=== PATIENT | female | born 1970 | race Caucasian/White ===

== ENCOUNTER 2019-11-27 10:32 | Inpatient (IN) ==
[2019-11-27] MEDS ORDERED: VANCOMYCIN 1,000 MG in 0.9 % SODIUM CHLORIDE 250 ML IV ONE (11:01)
[2019-11-27] MEDS ORDERED: traMADol 50 MG TABLET PO ONE (11:05)
[2019-11-27] MEDS ORDERED: INSULIN REGULAR, HUMAN 1 UNIT/0.01 ML UNIT SQ ONE (11:29)
--- NOTE | 2019-11-27 11:45 | Emergency Department Note ---
ED Note Addendum Note Addendum: I saw this patient with Sol BOYD. I agree with her assessment and evaluation-there is the possibility of osteomyelitis on my exam, in addition to cellulitis. I added a couple more labs on him as well as ordered imaging with x-ray. Patient's blood sugar was 358 so insulin was ordered as well. I reviewed studies and discussed the case with Sol Aragon. Patient will require admission. Sol to discuss with hospitalist
[2019-11-27 12:08] LABS: Basophils # (Auto) 0.05 K/mcL (0.00-0.30); Basophils % (Auto) 0.3 % (0.0-2.0); Eosinophils # (Auto) 0.32 K/mcL (0.00-0.70); Eosinophils % (Auto) 1.8 % (0.0-7.0); Granulocytes % (Auto) 79.9 % (38.0-78.0); Hematocrit 35.2 % (34.1-44.9); Lymphocytes # (Auto) 1.95 K/mcL (1.50-4.80); Lymphocytes % (Auto) 11.1 % (15.5-49.0); Mean Cell Volume 87.6 fL (80.0-100.0); Mean Corpuscular HGB Conc 34.1 g/dL (31.0-36.0); Mean Platelet Volume 11.8 fL (7.4-10.4); Monocytes # (Auto) 1.22 K/mcL (0.10-0.90); Monocytes % (Auto) 6.9 % (1.0-12.0); Platelet Count 219 K/mcL (140-440); RBC 4.02 M/mcL (3.59-5.38); Red Cell Distribution Width 14.2 % (11.5-14.5); WBC 17.6 K/mcL (4.50-11.00)
[2019-11-27 14:13] LABS: ALT/SGPT 6 U/l (0-40); AST/SGOT 11 U/l (0-37); Albumin 3.1 gm/dL (3.2-5.2); Albumin/Globulin Ratio 0.9 (1.0-2.3); Alkaline Phosphatase 89 U/L (39-117); Bilirubin,Total 0.5 mg/dL (0.0-1.0); Blood Urea Nitrogen 13 mg/dl (6-20); C-Reactive Protein 13.4 mg/dl (0.0-0.8); Calcium 8.9 mg/dl (8.6-10.4); Carbon Dioxide 20 mmol/L (22-30); Chloride 97 mmol/L (96-108); Globulin 3.4 gm/dL (2.2-3.7); Glomerular Filtration Rate 109; Glucose 331 mg/dL (70-105)
--- NOTE | 2019-11-27 14:15 | Emergency Department Note ---
Skin/Abscess/FB HPI - General Chief complaint: Skin/Abscess/Foreign Body Stated complaint: diabetic foot ulcer, right foot Time Seen by Provider: 11/27/19 10:40 Source: patient Mode of arrival: ambulatory Limitations: no limitations - History of Present Illness HPI Narrative: 49-year-old female presents with right foot redness, warmth, and she believes it is infected. States she saw her wound care doctor on Thursday and was concerned that it was red and warm and infected but they did not put her on antibiotics. States now it is severe. Denies fever or chills. No nausea, vomiting, or diarrhea. Her foot is painful and the swelling and redness is much worse over the last 24 hours. States when she gets this, which she has in the past it goes bad very quickly. No home treatments. - Related Data Previous Rx's Medication Instructions Recorded multivitamin 1 tab PO QDAY #90 tab 04/20/15 Naproxen [EC-Naprosyn] 375 mg PO 1HRACBID #20 tablet. 07/27/15 gabapentin 400 mg capsule 400 mg PO TID #90 cap 12/18/15 gabapentin 600 mg tablet,extended 600 mg PO HS #30 tab 12/18/15 release 24 hr insulin glargine 100 unit/mL (3 135 unit SUB-Q QHS #15 ml 12/18/15 mL) subcutaneous pen insulin glargine 100 unit/mL 175 unit SUB-Q .am #10 ml 12/18/15 subcutaneous solution lamotrigine 25 mg tablet 50 mg PO QDAY #60 tab 12/18/15 lisinopril 20 mg tablet 20 mg PO DAILY #30 tab 12/18/15 quetiapine 25 mg tablet 75 mg PO QHS #90 tab 12/18/15 simvastatin 20 mg tablet 20 mg PO QPM #30 tab 12/18/15 triamterene 37.5 1 tab-cap PO DAILY #30 tab 12/18/15 mg-hydrochlorothiazide 25 mg tablet insulin aspart U-100 100 unit/mL See Dose Instructions SUB-Q TID 02/21/16 subcutaneous solution #10 ml Clindamycin HCl [Cleocin] 300 mg PO TID #30 cap 05/28/19 Allergies Allergy/AdvReac Type Severity Reaction Status Date / Time cephalexin Allergy Rash Verified 11/27/19 10:38 Penicillins Allergy Rash Verified 11/27/19 10:38 Review of Systems All systems ED: reviewed and negative except as stated. Past Medical History - Past Medical History [facility] Narrative: Medical History (Last Updated 10/22/19 @ 17:01 by Jesus Mclaughlin DO) Diabetes mellitus, type II (Chronic) Sleep apnea (Chronic) Obesity (Chronic) Dental caries (Chronic) Neuropathy (Chronic) Hypertension (Chronic) Hyperlipidemia (Chronic) Kidney stones (Chronic) Insomnia (Chronic) Hypertension, essential (Chronic) Bipolar disorder (Chronic) Depressive disorder (Chronic) Carpal tunnel syndrome (Chronic) Arthritis (Chronic) Anxiety disorder (Chronic) Diabetic foot ulcer (Resolved) Cellulitis and abscess of foot (Resolved) Leukocytosis (leucocytosis) (Chronic) SIRS (systemic inflammatory response syndrome) (Resolved) Dental abscess (Resolved) Left breast mass (Resolved) Past Surgical History (Last Updated 10/22/19 @ 17:01 by Jesus Mclaughlin DO) History of section (Chronic) History of cholecystectomy (Chronic) Medical history: Reports: DM, hypertension, other (diabetic peripheral neuropathy, Charcot foot bilaterally.) Psychiatric history: Reports: other Surgical history ED: Reports: cholecystectomy, , hysterectomy, other - Social History smoking status: Current every day smoker Alcohol use: Reports: Unknown Drug use: Reports: none Physical Exam Limitations: no limitations General appearance: alert Head: atraumatic, normocephalic, normal inspection Eye: Present: normal appearance. Absent: conjunctival injection ENT: Present: mucous membranes moist Chest: Present: symmetric chest wall rise Respiratory: Present: normal lung sounds bilaterally. Absent: respiratory distress, rales/crackles, accessory muscle use Cardiovascular: Present: regular rate, normal heart sounds Extremities: Absent: normal inspection (Right foot with diffuse edema, redness, and warmth and tenderness. ) Neurological: Present: alert, oriented X3 Psychiatric: Present: anxious Skin: Present: warm, dry, erythema (To right foot, please see extremity assessment) Course Course Narrative: At 1510 Dr. Rodriguez, hospitalist accepts pt and Dr. Tierney agrees to consult Vital Signs Temperature 98.2 F 11/27/19 10:33 Pulse Rate 87 11/27/19 10:33 Respiratory Rate 16 11/27/19 10:33 Blood Pressure 131/77 11/27/19 10:33 Pulse Oximetry (%) 100 11/27/19 10:33 Temperature 98.2 F 11/27/19 10:33 Pulse Rate 78 11/27/19 13:00 Respiratory Rate 16 11/27/19 10:33 Blood Pressure 101/51 11/27/19 13:00 Pulse Oximetry (%) 97 11/27/19 13:00 Skin/Abscess/Foreign Body - Lab Data Lab results reviewed: Yes I reviewed the patient's lab results. Result diagrams: 11/27/19 11:28 11/27/19 13:14 Lab Results 11/27/19 11/27/19 11/27/19 Range/Units 11:28 11:28 11:28 WBC 17.6 H (4.50-11.00) K/mcL RBC 4.02 (3.59-5.38) M/mcL Hgb 12.0 (11.2-15.7) g/dL Hct 35.2 (34.1-44.9) % MCV 87.6 (80.0-100.0) fL MCH 29.9 (26.0-34.0) pg MCHC 34.1 (31.0-36.0) g/dL RDW 14.2 (11.5-14.5) % Plt Count 219 (140-440) K/mcL MPV 11.8 H (7.4-10.4) fL Gran % 79.9 H (38.0-78.0) % Lymph % (Auto) 11.1 L (15.5-49.0) % [place] % (Auto) 6.9 (1.0-12.0) % Eos % (Auto) 1.8 (0.0-7.0) % Baso % (Auto) 0.3 (0.0-2.0) % Gran # 14.05 H (1.80-8.00) K/mcL Lymph # (Auto) 1.95 (1.50-4.80) K/mcL [place] # (Auto) 1.22 H (0.10-0.90) K/mcL Eos # (Auto) 0.32 (0.00-0.70) K/mcL Baso # (Auto) 0.05 (0.00-0.30) K/mcL VBG Lactic Acid 1.0 (0.5-2.0) mmol/L Sodium TNP Potassium TNP Chloride TNP Carbon Dioxide TNP Anion Gap TNP BUN TNP Creatinine TNP GFR Calculation TNP Glucose TNP Calcium TNP Total Bilirubin TNP AST TNP ALT TNP Alkaline Phosphatase TNP C-Reactive Protein TNP Total Protein TNP Albumin TNP Globulin TNP Albumin/Globulin Ratio TNP Procalcitonin 11/27/19 11/27/19 11/27/19 Range/Units 11:28 13:14 13:14 WBC (4.50-11.00) K/mcL RBC (3.59-5.38) M/mcL Hgb (11.2-15.7) g/dL Hct (34.1-44.9) % MCV (80.0-100.0) fL MCH (26.0-34.0) pg MCHC (31.0-36.0) g/dL RDW (11.5-14.5) % Plt Count (140-440) K/mcL MPV (7.4-10.4) fL Gran % (38.0-78.0) % Lymph % (Auto) (15.5-49.0) % [place] % (Auto) (1.0-12.0) % Eos % (Auto) (0.0-7.0) % Baso % (Auto) (0.0-2.0) % Gran # (1.80-8.00) K/mcL Lymph # (Auto) (1.50-4.80) K/mcL [place] # (Auto) (0.10-0.90) K/mcL Eos # (Auto) (0.00-0.70) K/mcL Baso # (Auto) (0.00-0.30) K/mcL VBG Lactic Acid (0.5-2.0) mmol/L Sodium 130 L Potassium 4.7 Chloride 97 Carbon Dioxide 20 L Anion Gap 13.0 BUN 13 Creatinine 0.6 GFR Calculation 109 Glucose 331 H Calcium 8.9 Total Bilirubin 0.5 AST 11 ALT 6 Alkaline Phosphatase 89 C-Reactive Protein 13.4 H Total Protein 6.5 Albumin 3.1 L Globulin 3.4 Albumin/Globulin Ratio 0.9 L Procalcitonin TNP 0.04 - Radiology Data Radiology results reviewed: Yes I reviewed the patient's radiology results. Disposition Pt seen by [employer] only: No Clinical Impression: Cellulitis of right foot, Hyperglycemia due to diabetes mellitus Disposition: Xfer As Inpt ([facility]) Condition: Fair
--- NOTE | 2019-11-27 15:01 | Internal Med History&Physical ---
Medical - H&P: [facility] Patient information: Note initiated : 11/27/19 at 2:58 pm Service Date, if different from initiated Date: [] Patient: Dolores Sow a 49 y/o F admitted on for diabetic foot ulcer, right foot. Chief Complaint: [] History of present illness: Ms. Sow is a 49 year old F Presents the ED with diabetic foot ulcer that is becoming increasingly red , warm, and tender. She is being followed by wound care outpatient. Patient states that when she went to the wound care on Thursday for routine check she had a red swollen tender right foot. Since that time the redness has increased to include her entire foot with swelling around her right foot. Vital signs are stable this time. She was found to have a leukocytosis of 17. Lactate okay. MRI of the foot done in ED and pending results Dr. tierney contacted from the ED. Patient denies fevers, appears anxious. Review of Systems: Pertinent positives as above. Denies headache/fever/chills/nausea/vomiting/chest or abdominal yuki n/cough/dyspnea/diarrhea. Remaining 10 point review of system reviewed negative. Medical - H&P: [facility] Medical history: Medical History (Last Updated 10/22/19 @ 17:01 by Jesus Mclaughlin DO) Diabetes mellitus, type II (Chronic) Sleep apnea (Chronic) Obesity (Chronic) Dental caries (Chronic) Neuropathy (Chronic) Hypertension (Chronic) Hyperlipidemia (Chronic) Kidney stones (Chronic) Insomnia (Chronic) Hypertension, essential (Chronic) Bipolar disorder (Chronic) Depressive disorder (Chronic) Carpal tunnel syndrome (Chronic) Arthritis (Chronic) Anxiety disorder (Chronic) Diabetic foot ulcer (Resolved) Cellulitis and abscess of foot (Resolved) Leukocytosis (leucocytosis) (Chronic) SIRS (systemic inflammatory response syndrome) (Resolved) Dental abscess (Resolved) Left breast mass (Resolved) Past Surgical History (Last Updated 10/22/19 @ 17:01 by Jesus Mclaughlin DO) History of section (Chronic) History of cholecystectomy (Chronic) Family History Mother Cerebrovascular accident Diabetes mellitus Family history of arthritis Essential hypertension Acute myocardial infarction Disorder of thyroid Social History 1/2 ppd Denies alcohol use Uses a one leg scooter for right leg around Lives at home with family Medical - H&P: Meds Home Medications Medication Instructions Recorded Confirmed Type multivitamin 1 tab PO QDAY #90 tab 08/28/15 05/13/16 Rx Naproxen [EC-Naprosyn] 375 mg PO 1HRACBID #20 tablet.dr 07/27/15 01/04/16 Rx gabapentin 400 mg capsule 400 mg PO TID #90 cap 12/18/15 01/04/16 Rx gabapentin 600 mg tablet,extended 600 mg PO HS #30 tab 12/18/15 01/04/16 Rx release 24 hr insulin glargine 100 unit/mL (3 135 unit SUB-Q QHS #15 ml 12/18/15 01/04/16 Rx mL) subcutaneous pen insulin glargine 100 unit/mL 175 unit SUB-Q .am #10 ml 12/18/15 01/04/16 Rx subcutaneous solution lamotrigine 25 mg tablet 50 mg PO QDAY #60 tab 12/18/15 01/04/16 Rx lisinopril 20 mg tablet 20 mg PO DAILY #30 tab 12/18/15 01/04/16 Rx quetiapine 25 mg tablet 75 mg PO QHS #90 tab 12/18/15 01/04/16 Rx simvastatin 20 mg tablet 20 mg PO QPM #30 tab 12/18/15 01/04/16 Rx triamterene 37.5 1 tab-cap PO DAILY #30 tab 12/18/15 01/04/16 Rx mg-hydrochlorothiazide 25 mg tablet insulin aspart U-100 100 unit/mL See Dose Instructions SUB-Q TID 02/21/16 Rx subcutaneous solution #10 ml Clindamycin HCl [Cleocin] 300 mg PO TID #30 cap 05/28/19 Rx Allergies Allergy/AdvReac Type Severity Reaction Status Date / Time cephalexin Allergy Rash Verified 11/27/19 10:38 Penicillins Allergy Rash Verified 11/27/19 10:38 Medical - H&P: Exam - Constitutional Vitals: Temp Pulse Resp BP Pulse Ox 98.2 F 78 16 101/51 97 11/27/19 10:33 11/27/19 13:00 11/27/19 10:33 11/27/19 13:00 11/27/19 13:00 Exam: General: Alert, Awake, No acute Distress, obese Eyes/N/T: EOMI, PERRL, Head/Neck: neck supple, normocephalic atraumatic CV: RRR, No murmurs, normal s1/s2 Pulm: Clear b/l, no wheezing/rhonchi/rales Abd: soft, nontender, +BS x4 Ext: no clubbing/cyanosis/edema to LLE. RLE/foot erythematous/edematous/tender to palpation Neuro: Alert, no focal deficits, moves all extremities, CN 2-12 grossly intact, symmetrical strength b/l upper/lower, Skin: warm/dry Medical - H&P: Reslt - Labs CBC & Chem 7: 11/27/19 11:28 11/27/19 13:14 Labs: Short CBC 11/27/19 Range/Units 11:28 WBC 17.6 H (4.50-11.00) K/mcL Hgb 12.0 (11.2-15.7) g/dL Hct 35.2 (34.1-44.9) % Plt Count 219 (140-440) K/mcL BMP 11/27/19 11/27/19 11:28 13:14 Sodium TNP 130 L Potassium TNP 4.7 Chloride TNP 97 Carbon Dioxide TNP 20 L BUN TNP 13 Creatinine TNP 0.6 Glucose TNP 331 H Calcium TNP 8.9 Liver Function 11/27/19 11/27/19 Range/Units 11:28 13:14 Total Bilirubin TNP 0.5 AST TNP 11 ALT TNP 6 Alkaline Phosphatase TNP 89 Albumin TNP 3.1 L Medical - H&P: A/P - Narrative A/P Narrative: A: *Diabetic Right Foot ulcer/infection: -MRI showing *DM w/neuropathy: Hyperglycemic on admit, A1c -Hyperglycemic on admit 360 *Hyponatremia: may be on HCTZ *Obesity: *CHRIS: *HTN/HLD: *Anxiety/depression/bipolar: *Tobacco abuse: *Obesity: *GERD: P: -IV Vanco/rocephin, pending BC/WC -MRI pending -Dr. Tierney consulted -check ESR -check A1c -basal and SSI -clarify/update meds - -Smoking cessation counseling -ppx: heparin full code
--- NOTE | 2019-11-27 15:35 | Magnetic Resonance Report ---
CLINICAL INFORMATION: Midfoot swelling with diabetic foot ulcer evaluate for osteomyelitis COMPARISON: Plain films 11/27/2019 TECHNIQUE: Axial T1 and T2 proton density coronal propensity sagittal T1 and proton density images were obtained through the right foot FINDINGS: A 3 cm cutaneous ulcer is seen in the plantar fascia of the mid foot. Low signal within the base of this ulcer which could indicate surgical packing material or air. In the deep adjacent plantar fascia, a 4 cm fluid collection has disrupted the plantar tendon and extends through the plantar fascia to the cortex of the cuboid and calcaneus. It is suspicious for a deep fascial abscess. Large joint effusions throughout the hindfoot and midfoot involving the ankle mortise, talocalcaneal, calcaneocuboid, talocuneiform and all of the MTT joints. This should represent multicompartmental septic arthritis. An result of inflammation, there is subtotal erosion of the lateral cuneiform and the navicular. In fact, the navicular no longer longer articulates with the talus: there is complete talonavicular dislocation. Moderate erosive changes also seen in the cuboid, medial/middle cuneiform, anterior calcaneus and talar head. Inflammatory disruption of most midfoot and hindfoot ligaments appreciated with resultant plantar displacement and rotation of the talus and cuboid. Both transverse and longitudinal plantar arches are severely disrupted resulting in a rocker-bottom type appearance. IMPRESSION: 3 cm lateral ulceration in the mid foot. Deep to the ulceration, a 4 cm abscess has disrupted the plantar ligament and plantar fascia extending to the cortex of the calcaneus and cuboid. There is marked synovitis throughout the hindfoot and midfoot joints almost certainly representing septic arthritis. Subtotal inflammatory destruction of the lateral cuneiform and navicular with moderate erosive changes in talar head, middle/medial cuneiform, anterior calcaneus and cuboid appreciated. Complete dislocation of the talonavicular joint is due to inflammation. Inflammatory loss of osseous and ligamentous integrity results in complete collapse of the plantar arch with a rocker-bottom appearance. Interpreted and Authenticated by: Joce King 11/27/19
--- NOTE | 2019-11-27 15:43 | XRay Report ---
CLINICAL INFORMATION: osteomylitis COMPARISON: 10/26/2019 FINDINGS: A 2.8 cm air collection in the lateral plantar fascial overlying the fifth MTT joint represents the known ulceration. There is marked adjacent soft tissue swelling suspicious for focal abscess. This is new from the previous study. Total inflammatory destruction of the lateral cuneiform navicular, cuboid, talar head and anterior calcaneus has progressed. Suspect multi compartment septic arthritis and osteomyelitis. Loss of Osseous and ligamentous integrity results in complete collapse of the transverse and longitudinal plantar arch and a "rocker bottom "type deformity. This is unchanged IMPRESSION: 2.8 cm ulceration in the plantar cutaneous region of the fifth MTT cuboid region. There is marked adjacent soft tissue swelling suspicious for an abscess which appears to have developed since the comparison x-ray one month ago. Moderate erosive changes all tarsal bones talar head and anterior calcaneus has progressed. Suspect septic arthritis and associated osteomyelitis throughout the mid foot. Follow-up MRI could will be be performed Interpreted and Authenticated by: Joce King 11/27/19
[2019-11-27 15:48] LABS: Amphetamine Screen,Urine SUSPECT POSITIVE (NONDETECTED); Barbiturate Screen,Urine NONE DETECTED (NONDETECTED); Benzodiazepines Screen,Urine NONE DETECTED (NONDETECTED); Cannabinoid Screen,Urine SUSPECT POSITIVE (NONDETECTED); Cocaine Screen,Urine NONE DETECTED (NONDETECTED); Opiate Screen,Urine NONE DETECTED (NONDETECTED); Oxycodone, Urine Screen NONE DETECTED (NONDETECTED); Phencyclidine Screen,Urine NONE DETECTED (NONDETECTED)
[2019-11-27] MEDS ORDERED: ACETAMINOPHEN 325 MG TABLET PO PRN (16:14)
[2019-11-27] MEDS ORDERED: DEXTROSE 31 GM ORAL.SUSP PO PRN (16:14)
[2019-11-27] MEDS ORDERED: POTASSIUM CHLORIDE 20 MEQ TABLET PO PRN ×2 (16:14)
[2019-11-27] MEDS ORDERED: ONDANSETRON 4 MG/2 ML VIAL IV PRN (16:14)
[2019-11-27] MEDS ORDERED: SENNOSIDES 1 TABLET PO PRN (16:14)
[2019-11-27] MEDS ORDERED: IPRATROPIUM/ALBUTEROL 3 ML AMPUL.NEB NEB PRN (16:14)
[2019-11-27] MEDS ORDERED: POTASSIUM CHLORIDE 40 MEQ in DEXTROSE 5% IN WATER 500 ML IV PRN (16:14)
[2019-11-27] MEDS ORDERED: DEXTROSE 50% 50 ML VIAL IV PRN (16:14)
[2019-11-27] MEDS ORDERED: MAGNESIUM SULFATE 2 GM/50 ML BAG IV PRN (16:14)
[2019-11-27] MEDS ORDERED: VANCOMYCIN PER PHARMACY IV SCH (16:14)
[2019-11-27] MEDS ORDERED: POLYETHYLENE GLYCOL 3350 17 GM PACKET PO PRN (16:14)
[2019-11-27] MEDS ORDERED: INSULIN LISPRO 1 UNIT/0.01 ML UNIT SQ ONE (16:55)
[2019-11-27] MEDS: INSULIN LISPRO 1 UNIT/0.01 ML UNIT SQ SCH ×2 (16:56→20:24)
[2019-11-27 16:59] LABS: Hemoglobin A1C 10.4 % HGB (4.0-6.0)
[2019-11-27] MEDS: cefTRIAXone 2 GM in DEXTROSE 5% IN WATER 50 ML IV SCH (18:57)
[2019-11-27] MEDS: VANCOMYCIN 1,500 MG in 0.9 % SODIUM CHLORIDE 500 ML IV SCH (19:40)
[2019-11-27] MEDS ORDERED: diphenhydrAMINE 25 MG CAPSULE PO PRN (19:58)
[2019-11-27] MEDS ORDERED: MELATONIN 3 MG TABLET PO SCH (20:00)
[2019-11-27] MEDS: SIMVASTATIN 20 MG TABLET PO SCH (20:23)
[2019-11-27] MEDS: QUEtiapine 25 MG TABLET PO SCH (20:23)
[2019-11-27] MEDS: INSULIN GLARGINE, HUMAN 1 UNIT/0.01 ML SQ SCH (20:23)
[2019-11-27] MEDS: GABAPENTIN 300 MG CAPSULE PO SCH (20:23)
[2019-11-27] MEDS: FAMOTIDINE 20 MG TABLET PO SCH (20:23)
[2019-11-27] MEDS: HEPARIN 5,000 UNIT/ML VIAL SQ SCH (20:24)
[2019-11-27] MEDS: DOCUSATE SODIUM 100 MG CAPSULE PO SCH (20:25)
[2019-11-27] MEDS: 0.9 % SODIUM CHLORIDE 10 ML SYRINGE IV SCH (22:05)
[2019-11-28 06:02] LABS: Basophils # (Auto) 0.04 K/mcL (0.00-0.30); Basophils % (Auto) 0.4 % (0.0-2.0); Eosinophils # (Auto) 0.39 K/mcL (0.00-0.70); Eosinophils % (Auto) 4.1 % (0.0-7.0); Granulocytes % (Auto) 59.1 % (38.0-78.0); Hematocrit 33.7 % (34.1-44.9); Hemoglobin 10.9 g/dL (11.2-15.7); Lymphocytes # (Auto) 2.67 K/mcL (1.50-4.80); Lymphocytes % (Auto) 27.8 % (15.5-49.0); Mean Cell Volume 88.7 fL (80.0-100.0); Mean Corpuscular HGB Conc 32.3 g/dL (31.0-36.0); Mean Platelet Volume 10.8 fL (7.4-10.4); Monocytes # (Auto) 0.83 K/mcL (0.10-0.90); Monocytes % (Auto) 8.6 % (1.0-12.0); Platelet Count 210 K/mcL (140-440); WBC 9.6 K/mcL (4.50-11.00)
[2019-11-28 06:25] LABS: ALT/SGPT 6 U/l (0-40); AST/SGOT 6 U/l (0-37); Alkaline Phosphatase 76 U/L (39-117); Bilirubin,Direct < 0.2 mg/dL (0.0-0.3); Bilirubin,Total 0.4 mg/dL (0.0-1.0); Blood Urea Nitrogen 13 mg/dl (6-20); Calcium 8.7 mg/dl (8.6-10.4); Carbon Dioxide 23 mmol/L (22-30); Chloride 101 mmol/L (96-108); Globulin 3.1 gm/dL (2.2-3.7); Glomerular Filtration Rate 115; Glucose 117 mg/dL (70-105); Lactate Dehydrogenase 104 U/L (94-250); Phosphorous 3.9 mg/dL (2.7-4.5); Triglycerides 76 mg/dl (<150); Uric Acid 5.6 mg/dL (2.5-8.0)
--- NOTE | 2019-11-28 07:50 | Internal Med Progress Note ---
Medical - PN: Subj Patient information: Note initiated : 11/28/19 at 7:44 am Service Date, if different from initiated Date: [] Patient: Dolores Sow a 49 y/o F admitted on 11/27/19 for diabetic foot ulcer, right foot. Chief Complaint: [] Interval history: Ms. Sow is a 49 year old F Presents the ED with diabetic foot ulcer that is becoming increasingly red , warm, and tender. She is being followed by wound care outpatient. Patient states that when she went to the wound care on Thursday for routine check she had a red swollen tender right foot. Since that time the redness has increased to include her entire foot with swelling around her right foot. Vital signs are stable this time. She was found to have a leukocytosis of 17. Lactate okay. MRI of the foot done in ED and pending results Dr. tierney contacted from the ED. Patient denies fevers, appears anxious. /6 Patient slept well last night. Denies any fevers or chills or new complaints. Right foot coke still cleaner. Was quite defensive when I asked her about methamphetamine use, uses IV and inhaled. Explained to her the resources we have, including Dr. Haq. Review of Systems: denies headache/fever/chills/nausea/vomiting/chest or abdominal pain/cough/dyspnea/diarrhea. Otherwise see above. - Constitutional Vitals: Vital Signs Temp Pulse Resp BP Pulse Ox 98.0 F 82 20 90/55 95 11/28/19 04:00 11/28/19 04:00 11/28/19 04:00 11/28/19 04:00 11/28/19 04:00 Period Temp Pulse Resp BP Sys/Wilkins Pulse Ox Last 24 Hr 98.0 F-98.7 F 78-87 16-20 88-131/46-77 92-100 Intake and Output 11/27/19 11/28/19 11/28/19 21:59 05:59 13:59 Intake Total 240 250 Balance 240 250 Weight 120.746 kg Intake & Output: Intake & Output 11/27/19 11/28/19 11/28/19 21:59 05:59 13:59 Intake Total 240 250 Balance 240 250 Weight 120.746 kg Intake: Oral 240 250 Other: Meal yogurt & 1pk grahm crackers Percent of Meal Consumed 100% Feeding Ability Independent # Voids 1 Exam: General: Alert, Awake, No acute Distress, obese Eyes/N/T: EOMI, Head/Neck: neck supple, CV: RRR, No murmurs, Pulm: Clear b/l, no wheezing/rhonchi/rales Abd: soft, nontender, +BS x4 Ext: no clubbing/cyanosis/edema to LLE. RLE/foot erythematous/edematous/tender to palpation Neuro: Alert, no focal deficits, moves all extremities, Skin: warm/dry Medical - PN: Obj Da - Labs CBC & Chem 7: 11/28/19 05:25 11/28/19 05:25 Labs: Abnormal Lab Results 11/28/19 11/28/19 11/28/19 05:25 05:25 05:25 WBC Hgb 10.9 L Hct 33.7 L MPV 10.8 H Gran % Lymph % (Auto) Gran # [place]aines # (Auto) ESR Sodium Carbon Dioxide Creatinine 0.5 L Glucose 117 H Hemoglobin A1c C-Reactive Protein 10.0 H Albumin 3.0 L Albumin/Globulin Ratio Ur Amphetamines Screen U Marijuana (THC) Screen 11/27/19 11/27/19 11/27/19 13:14 11:28 11:28 WBC Hgb Hct MPV Gran % Lymph % (Auto) Gran # [place]aines # (Auto) ESR 57 H Sodium 130 L Carbon Dioxide 20 L Creatinine Glucose 331 H Hemoglobin A1c 10.4 H C-Reactive Protein 13.4 H Albumin 3.1 L Albumin/Globulin Ratio 0.9 L Ur Amphetamines Screen U Marijuana (THC) Screen 11/27/19 11/27/19 11:28 10:50 WBC 17.6 H Hgb Hct MPV 11.8 H Gran % 79.9 H Lymph % (Auto) 11.1 L Gran # 14.05 H Haines # (Auto) 1.22 H ESR Sodium Carbon Dioxide Creatinine Glucose Hemoglobin A1c C-Reactive Protein Albumin Albumin/Globulin Ratio Ur Amphetamines Screen Suspect positive A U Marijuana (THC) Screen Suspect positive A Meds: Medications Acetaminophen (Tylenol) 650 mg PO Q6HP PRN PRN Reason: PAIN/FEVER > 101 Hydrocodone Bitart/Acetaminophen ([place] 5/325mg) 1 tab PO Q4HP PRN PRN Reason: PAIN LEVEL 3-6 Albuterol/Ipratropium (Duoneb) 3 ml NEB Q4HP PRN PRN Reason: Shortness Of Breath Dextrose (Dextrose 50%) 0 ml IV UD PRN PRN Reason: Hypoglycemia Diagnostic Test (Pha) (Accu-Chek) 1 each FS ACHS [facility] Last Admin: 11/27/19 20:25 Dose: 1 each Documented by: Diphenhydramine HCl (Benadryl) 25 mg PO HSP PRN PRN Reason: Insomnia Docusate Sodium (Colace) 100 mg PO BID [facility] Last Admin: 11/27/19 20:25 Dose: Not Given Documented by: Famotidine (Pepcid) 20 mg PO HS [facility] Last Admin: 11/27/19 20:23 Dose: 20 mg Documented by: Gabapentin (Neurontin) 600 mg PO HS [facility] Last Admin: 11/27/19 20:23 Dose: 600 mg Documented by: Gabapentin (Neurontin) 400 mg PO TID@0900,1300,1700 [facility] Glucose (Insta-Glucose) 15 gm PO PRN PRN PRN Reason: Hypoglycemia Heparin Sodium (Porcine) (Heparin) 5,000 unit SQ Q12 [facility] Last Admin: 11/27/19 20:24 Dose: 5,000 unit Documented by: Potassium Chloride 40 meq/ (Dextrose) 520 mls @ 130 mls/hr IV UD PRN PRN Reason: Potassium < 3 Magnesium Sulfate (Magnesium Sulfate) 2 gm in 50 mls @ 50 mls/hr IV UD PRN PRN Reason: Magnesium </= 1.6 Ceftriaxone Sodium 2 gm/ (Dextrose) 50 mls @ 100 mls/hr IV DAILY [facility]; Protocol Last Admin: 11/27/19 18:57 Dose: 100 mls/hr Documented by: Vancomycin HCl 1,500 mg/ (Sodium Chloride) 500 mls @ 333.3 mls/hr IV Q12H [facility] Last Admin: 11/27/19 19:40 Dose: 250 mls/hr Documented by: Insulin Glargine (Lantus) 175 unit SQ .am [facility] Insulin Glargine (Lantus) 135 unit SQ HS [facility] Last Admin: 11/27/19 20:23 Dose: 135 units Documented by: Insulin Human Lispro (Humalog) 0 unit SQ [facility]; Protocol Last Admin: 11/27/19 20:24 Dose: 3 unit Documented by: Lamotrigine (Lamictal) 50 mg PO QDAY [facility] Lisinopril (Zestril) 20 mg PO DAILY [facility] Lorazepam (Ativan) 0.5 mg IV Q4-6HP PRN PRN Reason: ANXIETY/SEDATION Melatonin (Melatonin 3mg Tablet) 3 mg PO HSP [facility] Morphine Sulfate (Morphine) 0 mg IV Q3HP PRN PRN Reason: Pain Last Admin: 11/27/19 19:37 Dose: 3 mg Documented by: Ondansetron HCl (Zofran) 4 mg IV Q4HP PRN PRN Reason: Nausea And Vomiting Polyethylene Glycol (Miralax) 17 gm PO DAILYP PRN PRN Reason: Constipation Potassium Chloride (Kdur) 40 meq PO UD PRN PRN Reason: Potssium is 3-3.5 Potassium Chloride (Kdur) 40 meq PO UD PRN PRN Reason: Potassium < 3 Quetiapine Fumarate (Seroquel) 75 mg PO QHS [facility] Last Admin: 11/27/19 20:23 Dose: 75 mg Documented by: Senna (Senokot) 2 tab PO DAILYP PRN PRN Reason: Constipation Simvastatin (Zocor) 20 mg PO QPM [facility] Last Admin: 11/27/19 20:23 Dose: 20 mg Documented by: Sodium Chloride (Saline Flush) 10 ml IV Q8 [facility] Last Admin: 11/27/19 22:05 Dose: 10 ml Documented by: Vancomycin HCl (Vancomycin Per Pharmacy) 1 order IV UD [facility]; Protocol Medical - PN: A/P - Time Spent With Patient Total time spent is greater than 50% in coordination of care (as documented) at patient's floor/unit and/or counseling patient: - Narrative A/P Narrative: A: *Diabetic Right Foot ulcer/infection with Osteo: -MRI showing cellulitis/abscess/osteo *DM w/neuropathy, uncontrolled: Hyperglycemic on admit, A1c 10.4 -Hyperglycemic on admit 360 -pt does take lantus 175units in morning and 135 at night *Hyponatremia: may be on HCTZ; resolved *Obesity: *CHRIS: *HTN/HLD: *Anxiety/depression/bipolar: *Tobacco abuse: *Obesity: *GERD: *Substance abuse: with amphetamines IV/Inhaled - P: -IV Vanco/rocephin, pending BC/WC -Dr. Tierney consulted -basal (titrate up as needed) and SSI -hold hctz for hypontremia; reduced lisinopril for low BP, titrate back up as needed -Smoking/substance cessation counseling -Referral to see Dr. Haq outpt -ppx: heparin full code Medical - PN: Qual - VTE Deep Vein Thrombosis/Pulmonary Embolism Present on Admission: No
[2019-11-28] MEDS ORDERED: LISINOPRIL 20 MG TABLET PO SCH (09:00)
[2019-11-28] MEDS: DOCUSATE SODIUM 100 MG CAPSULE PO SCH ×2 (10:33→21:19)
[2019-11-28] MEDS: cefTRIAXone 2 GM in DEXTROSE 5% IN WATER 50 ML IV SCH (10:33)
[2019-11-28] MEDS: HEPARIN 5,000 UNIT/ML VIAL SQ SCH ×2 (10:34→21:27)
[2019-11-28] MEDS: INSULIN GLARGINE, HUMAN 1 UNIT/0.01 ML SQ SCH ×2 (10:34→21:21)
[2019-11-28] MEDS: INSULIN LISPRO 1 UNIT/0.01 ML UNIT SQ SCH ×4 (10:35→21:24)
[2019-11-28] MEDS: GABAPENTIN 400 MG CAPSULE PO SCH ×3 (10:35→16:42)
[2019-11-28] MEDS: LISINOPRIL 5 MG TABLET PO SCH (10:35)
[2019-11-28] MEDS: 0.9 % SODIUM CHLORIDE 10 ML SYRINGE IV SCH ×3 (10:39→21:21)
[2019-11-28] MEDS: lamoTRIgine 25 MG TABLET PO SCH (10:39)
[2019-11-28] MEDS: VANCOMYCIN 1,500 MG in 0.9 % SODIUM CHLORIDE 500 ML IV SCH ×2 (11:23→21:17)
[2019-11-28] MEDS ORDERED: SCOPOLAMINE 1 PATCH PATCH TOPICAL PRN (13:35)
--- NOTE | 2019-11-28 13:45 | Orthopedic Consult Note ---
History of Present Illness - HPI Patient information: Note initiated : 11/28/19 at 1:41 pm Service Date, if different from initiated Date: [] Patient: Dolores Sow 49 y/o F admitted on 11/27/19 for diabetic foot ulcer, right foot. Chief Complaint: [right foot infection] Consult date: 11/28/19 Requesting physician: Nithin Rodriguez Consult reason: other (cellulitis right foot) History of present illness: Acute on chronic right foot ulceration. History of infections and charcot. Became red and swollen over the weekend and came to the hospital for treatment. Review of Systems Constitutional: fatigue, lethargy, malaise, weakness Musculoskeletal: right: ankle pain, ankle stiffness, ankle swelling, foot pain, foot stiffness, foot swelling Past History Past medical history: MIXED ANXIETY AND DEPRESSIVE DISORDER BIPOLAR II DISORDER Type II Diabetes CARDIAC STENTS X3 Hypertension MRSA EXPOSURE Obesity POST TRAUMATIC STRESS DISORDER Past surgical history: US SCAN OF LOWER LEG BIOPSY OF BONE Cardiac surgery ANGIOPLASTY BREAST BIOPSY TOTAL HYSTERECTOMY section X3 Past family history: Cancer Maternal Grandparents: Skin cancer great grandmother Diabetes Mother: DMII, cousin DMI Heart Disease Mother: IA, with stents and angioplasty, Maternal Grandparents: grandmother bypass, grandfather bypass Stroke Mother Other Mother: mom's sister MS Past social history: Tobacco Use (deprecated) Medications and Allergies Home Medications Medication Instructions Recorded Confirmed Type multivitamin 1 tab PO QDAY #90 tab 04/20/15 11/27/19 Rx Naproxen [EC-Naprosyn] 375 mg PO 1HRACBID #20 tablet. 07/27/15 11/27/19 Rx gabapentin 400 mg capsule 400 mg PO TID #90 cap 12/18/15 11/27/19 Rx gabapentin 600 mg tablet,extended 600 mg PO HS #30 tab 12/18/15 11/27/19 Rx release 24 hr insulin glargine 100 unit/mL (3 135 unit SUB-Q QHS #15 ml 12/18/15 11/27/19 Rx mL) subcutaneous pen insulin glargine 100 unit/mL 175 unit SUB-Q .am #10 ml 12/18/15 11/27/19 Rx subcutaneous solution lamotrigine 25 mg tablet 50 mg PO QDAY #60 tab 12/18/15 11/27/19 Rx lisinopril 20 mg tablet 20 mg PO DAILY #30 tab 12/18/15 11/27/19 Rx quetiapine 25 mg tablet 75 mg PO QHS #90 tab 12/18/15 11/27/19 Rx simvastatin 20 mg tablet 20 mg PO QPM #30 tab 12/18/15 11/27/19 Rx triamterene 37.5 1 tab-cap PO DAILY #30 tab 12/18/15 11/27/19 Rx mg-hydrochlorothiazide 25 mg tablet insulin aspart U-100 100 unit/mL See Dose Instructions SUB-Q TID 02/21/16 11/27/19 Rx subcutaneous solution #10 ml Clindamycin HCl [Cleocin] 300 mg PO TID #30 cap 05/28/19 11/27/19 Rx Allergies Allergy/AdvReac Type Severity Reaction Status Date / Time cephalexin Allergy Rash Verified 11/27/19 10:38 Penicillins Allergy Rash Verified 11/27/19 10:38 Physical Examination - Ankle & Foot right Ankle appearance: swelling, erythema Foot appearance: swelling, erythema, other (2.7cm length x 2cm width x 1.9cm depth; with an area of 5.4 sq cm ulceration) Assessment and Plan (1) Cellulitis of right foot Status: Acute Priority: High - Narrative A/P Narrative: Heart Inspection: Symmetrical expansion with respiration, no other wall motions. Palpation: Point of maximal impulse (PMI) (apical impulse) noted at midclavicular line, in fifth intercostal space. Auscultation: Normal S1 and S2, with regular rate and rhythm. S2 > S1 at the base, S1 > S2 at apex. No splitting of the heart sounds heard. No murmur. No S3 or S4, no friction rub. Lungs Lungs are not clear to auscultation and percussion bilaterally Crackles heard in the lung bases bilaterally PLAN: NPO at midnight tonight Cellulitis right foot with ulcerations. Requires incision and debridement. Incision and drainage right foot
[2019-11-28 16:01] LABS: Appearance,Urine HAZY; Bacteria,Urine FEW /hpf (0); Bilirubin,Urine NEG (NEG); Color,Urine YELLOW; Culture Indicated,Urine NO; Glucose,Urine (UA) >=500 mg/dL (NEG); Ketones,Urine NEG (NEG); Leukocyte Esterase,Urine 500 /uL (NEG); Mucus,Urine FEW /hpf (0); Nitrate,Urine NEG (NEG); Protein,Urine NEG (NEG); Specific Gravity,Urine 1.018 (1.000-1.035); Urine Blood NEG mg/dL (<0.03); Urine RBC 2 /hpf (0-1); Urine Squamous Epithelial Cell 9 /hpf (0-4); Urine WBC 3 /hpf (0-4); Urobilinogen,Urine NEG (NEG)
[2019-11-28] MEDS: SIMVASTATIN 20 MG TABLET PO SCH (21:19)
[2019-11-28] MEDS: GABAPENTIN 300 MG CAPSULE PO SCH (21:19)
[2019-11-28] MEDS: FAMOTIDINE 20 MG TABLET PO SCH (21:19)
[2019-11-28] MEDS: QUEtiapine 25 MG TABLET PO SCH (21:19)
[2019-11-28] MEDS: HYDROcodone/APAP 5/325MG TABLET PO PRN (21:20)
[2019-11-29] MEDS: 0.9 % SODIUM CHLORIDE 10 ML SYRINGE IV SCH ×3 (06:16→20:38)
[2019-11-29 06:33] LABS: Blood Urea Nitrogen 13 mg/dl (6-20); Calcium 8.8 mg/dl (8.6-10.4); Carbon Dioxide 24 mmol/L (22-30); Chloride 100 mmol/L (96-108); Glomerular Filtration Rate 115; Glucose 141 mg/dL (70-105)
[2019-11-29] MEDS: LISINOPRIL 5 MG TABLET PO SCH (07:36)
[2019-11-29] MEDS: GABAPENTIN 400 MG CAPSULE PO SCH ×3 (07:36→16:56)
[2019-11-29] MEDS: DOCUSATE SODIUM 100 MG CAPSULE PO SCH ×2 (07:37→20:33)
[2019-11-29] MEDS: HEPARIN 5,000 UNIT/ML VIAL SQ SCH ×2 (07:37→20:37)
[2019-11-29] MEDS: INSULIN GLARGINE, HUMAN 1 UNIT/0.01 ML SQ SCH ×2 (07:38→20:34)
[2019-11-29] MEDS: INSULIN LISPRO 1 UNIT/0.01 ML UNIT SQ SCH ×4 (07:38→20:47)
[2019-11-29] MEDS: lamoTRIgine 25 MG TABLET PO SCH (07:56)
[2019-11-29] MEDS: cefTRIAXone 2 GM in DEXTROSE 5% IN WATER 50 ML IV SCH (09:22)
[2019-11-29] MEDS ORDERED: LIDOCAINE HCL/PF 100 MG/5 ML SYRINGE IV ONE (09:40)
[2019-11-29] MEDS ORDERED: GLYCOPYRROLATE 0.2 MG/ML VIAL IV ONE (09:40)
[2019-11-29] MEDS ORDERED: fentaNYL 100 MCG/2 ML VIAL IV ONE (09:40)
[2019-11-29] MEDS ORDERED: KETAMINE 100 MG/ML ML IV ONE (09:40)
[2019-11-29] MEDS ORDERED: ONDANSETRON 4 MG/2 ML VIAL IV ONE (09:40)
[2019-11-29] MEDS ORDERED: DEXAMETHASONE 10 MG/ML VIAL IV ONE (09:40)
[2019-11-29] MEDS ORDERED: PROPOFOL 200 MG/20 ML VIAL IV ONE (09:40)
--- NOTE | 2019-11-29 09:54 | Internal Med Progress Note ---
Medical - PN: Subj Patient information: Note initiated : 11/29/19 at 9:51 am Service Date, if different from initiated Date: [] Patient: Dolores Sow a 49 y/o F admitted on 11/27/19 for diabetic foot ulcer, right foot. Chief Complaint: [] Interval history: Ms. Sow is a 49 year old F Presents the ED with diabetic foot ulcer that is becoming increasingly red , warm, and tender. She is being followed by wound care outpatient. Patient states that when she went to the wound care on Thursday for routine check she had a red swollen tender right foot. Since that time the redness has increased to include her entire foot with swelling around her right foot. Vital signs are stable this time. She was found to have a leukocytosis of 17. Lactate okay. MRI of the foot done in ED and pending results Dr. tierney contacted from the ED. Patient denies fevers, appears anxious. 11/27 Patient slept well last night. Denies any fevers or chills or new complaints. Right foot stave planer tender. Was quite defensive when I asked her about methamphetamine use, uses IV and inhaled. Explained to her the resources we have, including Dr. Haq. 11/28-patient doing well. Surgical I&D today. No overnight events or fever chills. On antibiotic coverage. No concerns per nursing staff. White count down from 17.6-9.6. Sodium improved from 1 30-1 34. - Constitutional Vitals: Vital Signs Temp Pulse Resp BP Pulse Ox 98.4 F 67 22 120/74 97 11/29/19 08:00 11/29/19 08:00 11/29/19 08:00 11/29/19 08:00 11/29/19 08:00 Period Temp Pulse Resp BP Sys/Wilkins Pulse Ox Last 24 Hr 97.8 F-98.8 F 60-93 18-22 90-124/49-75 91-97 Intake and Output 11/28/19 11/29/19 11/29/19 21:59 05:59 13:59 Intake Total 1160 50 Output Total 1450 900 Balance -290 -850 Weight 266 lb 8 oz Intake & Output: Intake & Output 11/28/19 11/29/19 11/29/19 21:59 05:59 13:59 Intake Total 1160 50 Output Total 1450 900 Balance -290 -850 Weight 266 lb 8 oz Intake: Oral 1160 50 Output: Void Amount 1450 900 Other: Meal Yogurt/parish crackers Yogurt/Parish crackers Percent of Meal Consumed 100% 100% Feeding Ability Independent Independent Urine Appearance Clear Clear Urine Color Bright Yellow Pale General appearance: morbidly obese, no acute distress Exam: Alert and respond to commands Nonlabored breathing No anxiety No lymphedema Medical - PN: Obj Da - Labs CBC & Chem 7: 11/28/19 05:25 11/29/19 05:40 Labs: Abnormal Lab Results 11/29/19 11/28/19 11/28/19 05:40 15:07 05:25 WBC Hgb Hct MPV Gran % Lymph % (Auto) Gran # Garfield # (Auto) ESR Sodium Carbon Dioxide Creatinine 0.5 L Glucose 141 H Hemoglobin A1c C-Reactive Protein 10.0 H Albumin Albumin/Globulin Ratio Urine Glucose (UA) >=500 A Ur Leukocyte Esterase 500 A Urine RBC 2 H Ur Squamous Epith Cells 9 H Urine Bacteria Few A Ur Amphetamines Screen U Marijuana (THC) Screen 11/28/19 11/28/19 11/27/19 05:25 05:25 13:14 WBC Hgb 10.9 L Hct 33.7 L MPV 10.8 H Gran % Lymph % (Auto) Gran # Garfield # (Auto) ESR Sodium 130 L Carbon Dioxide 20 L Creatinine 0.5 L Glucose 117 H 331 H Hemoglobin A1c C-Reactive Protein 13.4 H Albumin 3.0 L 3.1 L Albumin/Globulin Ratio 0.9 L Urine Glucose (UA) Ur Leukocyte Esterase Urine RBC Ur Squamous Epith Cells Urine Bacteria Ur Amphetamines Screen U Marijuana (THC) Screen 11/27/19 11/27/19 11/27/19 11:28 11:28 11:28 WBC 17.6 H Hgb Hct MPV 11.8 H Gran % 79.9 H Lymph % (Auto) 11.1 L Gran # 14.05 H Garfield # (Auto) 1.22 H ESR 57 H Sodium Carbon Dioxide Creatinine Glucose Hemoglobin A1c 10.4 H C-Reactive Protein Albumin Albumin/Globulin Ratio Urine Glucose (UA) Ur Leukocyte Esterase Urine RBC Ur Squamous Epith Cells Urine Bacteria Ur Amphetamines Screen U Marijuana (THC) Screen 11/27/19 10:50 WBC Hgb Hct MPV Gran % Lymph % (Auto) Gran # Garfield # (Auto) ESR Sodium Carbon Dioxide Creatinine Glucose Hemoglobin A1c C-Reactive Protein Albumin Albumin/Globulin Ratio Urine Glucose (UA) Ur Leukocyte Esterase Urine RBC Ur Squamous Epith Cells Urine Bacteria Ur Amphetamines Screen Suspect positive A U Marijuana (THC) Screen Suspect positive A Meds: Medications Acetaminophen (Tylenol) 650 mg PO Q6HP PRN PRN Reason: PAIN/FEVER > 101 Hydrocodone Bitart/Acetaminophen (Hurricane 5/325mg) 1 tab PO Q4HP PRN PRN Reason: PAIN LEVEL 3-6 Last Admin: 11/28/19 21:20 Dose: 1 tab Documented by: Albuterol/Ipratropium (Duoneb) 3 ml NEB Q4HP PRN PRN Reason: Shortness Of Breath Dextrose (Dextrose 50%) 0 ml IV UD PRN PRN Reason: Hypoglycemia Diagnostic Test (Pha) (Accu-Chek) 1 each FS ACHS [facility] Last Admin: 11/29/19 07:55 Dose: Not Given Documented by: Diagnostic Test (Pha) (Accu-Chek) 1 each FS Q2 [facility] Stop: 11/29/19 09:59 Last Admin: 11/29/19 07:54 Dose: 1 each Documented by: Diphenhydramine HCl (Benadryl) 25 mg PO HSP PRN PRN Reason: Insomnia Docusate Sodium (Colace) 100 mg PO BID [facility] Last Admin: 11/29/19 07:37 Dose: Not Given Documented by: Famotidine (Pepcid) 20 mg PO [facility] Last Admin: 11/28/19 21:19 Dose: 20 mg Documented by: Gabapentin (Neurontin) 600 mg PO [facility] Last Admin: 11/28/19 21:19 Dose: 600 mg Documented by: Gabapentin (Neurontin) 400 mg PO TID@0900,1300,1700 [facility] Last Admin: 11/29/19 07:36 Dose: 400 mg Documented by: Glucose (Insta-Glucose) 15 gm PO PRN PRN PRN Reason: Hypoglycemia Heparin Sodium (Porcine) (Heparin) 5,000 unit SQ Q12 [facility] Last Admin: 11/29/19 07:37 Dose: Not Given Documented by: Potassium Chloride 40 meq/ (Dextrose) 520 mls @ 130 mls/hr IV UD PRN PRN Reason: Potassium < 3 Magnesium Sulfate (Magnesium Sulfate) 2 gm in 50 mls @ 50 mls/hr IV UD PRN PRN Reason: Magnesium </= 1.6 Ceftriaxone Sodium 2 gm/ (Dextrose) 50 mls @ 100 mls/hr IV DAILY [facility]; Protocol Last Admin: 11/29/19 09:22 Dose: 100 mls/hr Documented by: Vancomycin HCl 1,500 mg/ (Sodium Chloride) 500 mls @ 333.3 mls/hr IV Q12H [facility] Last Admin: 11/28/19 21:17 Dose: 250 mls/hr Documented by: Insulin Glargine (Lantus) 175 unit SQ DAILY [facility] Last Admin: 11/29/19 07:38 Dose: Not Given Documented by: Insulin Glargine (Lantus) 135 unit SQ HS [facility] Last Admin: 11/28/19 21:21 Dose: Not Given Documented by: Insulin Human Lispro (Humalog) 0 unit SQ ACHS [facility]; Protocol Last Admin: 11/29/19 07:38 Dose: Not Given Documented by: Lamotrigine (Lamictal) 50 mg PO QDAY [facility] Last Admin: 11/29/19 07:56 Dose: 50 mg Documented by: Lisinopril (Zestril) 5 mg PO DAILY [facility] Last Admin: 11/29/19 07:36 Dose: 5 mg Documented by: Lorazepam (Ativan) 0.5 mg IV Q4-6HP PRN PRN Reason: ANXIETY/SEDATION Melatonin (Melatonin 3mg Tablet) 3 mg PO [facility] Morphine Sulfate (Morphine) 0 mg IV Q3HP PRN PRN Reason: Pain Last Admin: 11/28/19 11:32 Dose: 4 mg Documented by: Ondansetron HCl (Zofran) 4 mg IV Q4HP PRN PRN Reason: Nausea And Vomiting Polyethylene Glycol (Miralax) 17 gm PO DAILYP PRN PRN Reason: Constipation Potassium Chloride (Kdur) 40 meq PO UD PRN PRN Reason: Potssium is 3-3.5 Potassium Chloride (Kdur) 40 meq PO UD PRN PRN Reason: Potassium < 3 Quetiapine Fumarate (Seroquel) 75 mg PO QHS [facility] Last Admin: 11/28/19 21:19 Dose: 75 mg Documented by: Scopolamine (Transderm-Scop) 1 patch TOPICAL PREOP PRN PRN Reason: Nausea And Vomiting Senna (Senokot) 2 tab PO DAILYP PRN PRN Reason: Constipation Simvastatin (Zocor) 20 mg PO QPM [facility] Last Admin: 11/28/19 21:19 Dose: 20 mg Documented by: Sodium Chloride (Saline Flush) 10 ml IV Q8 [facility] Last Admin: 11/29/19 06:16 Dose: 10 ml Documented by: Vancomycin HCl (Vancomycin Per Pharmacy) 1 order IV UD [facility]; Protocol Medical - PN: A/P - Time Spent With Patient Total time spent is greater than 50% in coordination of care (as documented) at patient's floor/unit and/or counseling patient: 25 - 35 minutes - Narrative A/P Narrative: *Diabetic Right Foot ulcer/infection with Osteo: -MRI showing cellulitis/abscess/osteo. Await I&D today by podiatry *DM w/neuropathy, uncontrolled: Hyperglycemic on admit, A1c 10.4 -Continue Lantus 175units in morning and 135 at night post surgery *Hyponatremia: resolved *Obesity: Continue with directed therapies *CHRIS: *HTN/HLD: *Anxiety/depression/bipolar: *Tobacco abuse: *Obesity: *GERD: *Substance abuse: with amphetamines IV/Inhaled - P: -IV Vanco/rocephin, pending BC/WC -Wound care per Dr. Tierney -basal (titrate up as needed) and SSI -Smoking/substance cessation counseling -Referral to see Dr. Haq outpt -ppx: heparin Medical - PN: Qual - VTE Deep Vein Thrombosis/Pulmonary Embolism Present on Admission: No
--- NOTE | 2019-11-29 10:21 | Brief Operative Note ---
Date of procedure: 11/29/19 Pre-op diagnosis: cellulitis right foot Post-op diagnosis: same Procedure: incision and drainage right foot Grafts/Implants: No Anesthesia: GETA Complications: none Surgeon: Asif Tellez Estimated blood loss (cc): 20 Specimens Removed/Pathology: other (culture) Condition: stable Disposition: floor
--- NOTE | 2019-11-29 10:35 | Operative Note ---
DATE OF OPERATION: 11/29/2019 PREOPERATIVE DIAGNOSIS: Cellulitis, right foot. POSTOPERATIVE DIAGNOSIS: Cellulitis, right foot. PROCEDURE PERFORMED: Incision and drainage of the right foot. IMPLANTS: None. ANESTHESIA: GETA. COMPLICATIONS: None. ESTIMATED BLOOD LOSS: 20 mL SPECIMEN: Culture, right foot. CONDITION: Stable. DISPOSITION: To floor. DESCRIPTION OF PROCEDURE: The patient was brought to the operating room and placed in the bed. She remained in the bed throughout the procedure. Intubation was performed by the anesthesia provider alone in the room. Once entry to the operating room was cleared, the right foot was scrubbed, prepped and draped in the usual aseptic fashion. There was noted to be grossly cellulitic foot on the right side. A timeout was performed. Blunt dissection was performed to express approximately 10 mL of purulent fluid. A 3 liter bag of normal saline was irrigated into this area with pulse lavage. Sinus was tracked to the plantar posterior aspect and plantar lateral aspect of the foot which had two open ulcerations on the lateral aspect. These areas were probed open. Necrotic tissue was removed with a rongeur. Only granular tissue was remaining following debridement. A 0.5 inch iodine packing was used at these three locations with a communicating sinus tract to the lateral aspect of the foot, and 4 x 4 gauze, ABD pad, Kerlix, and Coban were placed in a mildly compressive fashion following the completion of the procedure. The patient will continue to receive intravenous antibiotic therapy in the hospital and upon discharge. She is to remain nonweightbearing and will continue to receive daily monitoring while inpatient at the hospital. KDJ:loraine Job ID: [id number] Doc ID: [id number] Asif Tellez DPM
[2019-11-29] MEDS ORDERED: LACTATED RINGERS 250 ML IV PRN (10:38)
[2019-11-29] MEDS ORDERED: ONDANSETRON 4 MG/2 ML VIAL IV PRN (10:38)
[2019-11-29] MEDS ORDERED: IPRATROPIUM/ALBUTEROL 3 ML AMPUL.NEB NEB PRN (10:38)
[2019-11-29] MEDS ORDERED: diphenhydrAMINE 50 MG/ML VIAL IV PRN (10:38)
[2019-11-29] MEDS ORDERED: fentaNYL 100 MCG/2 ML VIAL IV PRN (10:38)
[2019-11-29] MEDS ORDERED: LACTATED RINGERS 1,000 ML IV SCH (10:45)
[2019-11-29] MEDS: VANCOMYCIN 1,500 MG in 0.9 % SODIUM CHLORIDE 500 ML IV SCH ×2 (11:30→20:32)
[2019-11-29] MEDS: LORazepam 2 MG/ML VIAL IV PRN (12:45)
[2019-11-29] MEDS: HYDROcodone/APAP 5/325MG TABLET PO PRN ×2 (14:35→20:32)
[2019-11-29] MEDS: GABAPENTIN 300 MG CAPSULE PO SCH (20:33)
[2019-11-29] MEDS: SIMVASTATIN 20 MG TABLET PO SCH (20:33)
[2019-11-29] MEDS: QUEtiapine 25 MG TABLET PO SCH (20:33)
[2019-11-29] MEDS: FAMOTIDINE 20 MG TABLET PO SCH (20:33)
[2019-11-30] MEDS: INSULIN LISPRO 1 UNIT/0.01 ML UNIT SQ SCH ×4 (07:22→20:59)
[2019-11-30] MEDS: 0.9 % SODIUM CHLORIDE 10 ML SYRINGE IV SCH ×3 (07:23→22:05)
[2019-11-30] MEDS: HEPARIN 5,000 UNIT/ML VIAL SQ SCH ×2 (09:43→20:32)
[2019-11-30] MEDS: LISINOPRIL 5 MG TABLET PO SCH (09:44)
[2019-11-30] MEDS: GABAPENTIN 400 MG CAPSULE PO SCH ×3 (09:44→17:23)
[2019-11-30] MEDS: HYDROcodone/APAP 5/325MG TABLET PO PRN ×2 (09:44→13:47)
[2019-11-30] MEDS: DOCUSATE SODIUM 100 MG CAPSULE PO SCH ×2 (09:45→20:30)
[2019-11-30] MEDS: lamoTRIgine 25 MG TABLET PO SCH (09:45)
[2019-11-30] MEDS: INSULIN GLARGINE, HUMAN 1 UNIT/0.01 ML SQ SCH ×2 (09:46→20:33)
[2019-11-30] MEDS: cefTRIAXone 2 GM in DEXTROSE 5% IN WATER 50 ML IV SCH (10:00)
[2019-11-30] MEDS: VANCOMYCIN 1,500 MG in 0.9 % SODIUM CHLORIDE 500 ML IV SCH ×2 (10:28→20:25)
--- NOTE | 2019-11-30 10:34 | Internal Med Progress Note ---
Medical - PN: Subj Patient information: Note initiated : 11/30/19 at 10:32 am Service Date, if different from initiated Date: [] Patient: Dolores Sow a 49 y/o F admitted on 11/27/19 for diabetic foot ulcer, right foot. Chief Complaint: [] Interval history: Ms. Sow is a 49 year old F Presents the ED with diabetic foot ulcer that is becoming increasingly red , warm, and tender. She is being followed by wound care outpatient. Patient states that when she went to the wound care on Thursday for routine check she had a red swollen tender right foot. Since that time the redness has increased to include her entire foot with swelling around her right foot. Vital signs are stable this time. She was found to have a leukocytosis of 17. Lactate okay. MRI of the foot done in ED and pending results Dr. gore contacted from the ED. Patient denies fevers, appears anxious. 11/27 Patient slept well last night. Denies any fevers or chills or new complaints. Right foot automatic cigar wrapper tender. Was quite defensive when I asked her about methamphetamine use, uses IV and inhaled. Explained to her the resources we have, including Dr. Haq. 11/28-patient doing well. Surgical I&D today. No overnight events or fever chills. On antibiotic coverage. No concerns per nursing staff. White count down from 17.6-9.6. Sodium improved from 1 30-1 34. 11/29-patient status post I&D by podiatry. Ongoing antibiotic. Staph aureus last enterococcus on wound cultures. Final sensitivities pending. No overnight fever chills. Wound care ongoing. History of methamphetamine use with positive drug screen. Patient would not be a candidate for indwelling IV line for long- term antibiotics due to high risk catheter misuse for IV drugs. Case management coordinate daily outpatient infusion. Final antibiotics will be based on cultures - Constitutional Vitals: Vital Signs Temp Pulse Resp BP Pulse Ox 97.7 F 82 20 110/68 97 11/30/19 08:00 11/30/19 08:00 11/30/19 08:00 11/30/19 08:00 11/30/19 08:00 Period Temp Pulse Resp BP Sys/Wilkins Pulse Ox Last 24 Hr 97.4 F-99.1 F 76-101 16-22 90-139/48-81 90-98 Intake and Output 11/29/19 11/30/19 11/30/19 21:59 05:59 13:59 Intake Total 800 1050 240 Output Total 1700 1200 600 Balance -900 -150 -360 Weight 269 lb 8 oz Intake & Output: Intake & Output 11/29/19 11/30/19 11/30/19 21:59 05:59 13:59 Intake Total 800 1050 240 Output Total 1700 1200 600 Balance -900 -150 -360 Weight 269 lb 8 oz Intake: IV 500 Vancomycin 1,500 mg In Sodium 500 Chloride 0.9% 500 ml @ 333.3 mls/hr IV Q12H [facility] Rx#: [id number] Oral 800 550 240 Output: Void Amount 1700 1200 600 Other: Meal Egg salad/crackers Breakfast Percent of Meal Consumed 100% 100% Feeding Ability Independent Independent Urine Appearance Clear Clear Urine Color Bright Yellow Bright Yellow Urine Odor Normal Normal General appearance: no acute distress Exam: Anxious and tearful Nonlabored breathing Nondistended abdomen Right foot dressing Medical - PN: Obj Da - Labs CBC & Chem 7: 11/28/19 05:25 11/29/19 05:40 Labs: Abnormal Lab Results 11/29/19 11/28/19 11/28/19 05:40 15:07 05:25 WBC Hgb Hct MPV Gran % Lymph % (Auto) Gran # [place] # (Auto) ESR Sodium Carbon Dioxide Creatinine 0.5 L Glucose 141 H Hemoglobin A1c C-Reactive Protein 10.0 H Albumin Albumin/Globulin Ratio Urine Glucose (UA) >=500 A Ur Leukocyte Esterase 500 A Urine RBC 2 H Ur Squamous Epith Cells 9 H Urine Bacteria Few A Ur Amphetamines Screen U Marijuana (THC) Screen 11/28/19 11/28/19 11/27/19 05:25 05:25 13:14 WBC Hgb 10.9 L Hct 33.7 L MPV 10.8 H Gran % Lymph % (Auto) Gran # [place] # (Auto) ESR Sodium 130 L Carbon Dioxide 20 L Creatinine 0.5 L Glucose 117 H 331 H Hemoglobin A1c C-Reactive Protein 13.4 H Albumin 3.0 L 3.1 L Albumin/Globulin Ratio 0.9 L Urine Glucose (UA) Ur Leukocyte Esterase Urine RBC Ur Squamous Epith Cells Urine Bacteria Ur Amphetamines Screen U Marijuana (THC) Screen 11/27/19 11/27/19 11/27/19 11:28 11:28 11:28 WBC 17.6 H Hgb Hct MPV 11.8 H Gran % 79.9 H Lymph % (Auto) 11.1 L Gran # 14.05 H [place] # (Auto) 1.22 H ESR 57 H Sodium Carbon Dioxide Creatinine Glucose Hemoglobin A1c 10.4 H C-Reactive Protein Albumin Albumin/Globulin Ratio Urine Glucose (UA) Ur Leukocyte Esterase Urine RBC Ur Squamous Epith Cells Urine Bacteria Ur Amphetamines Screen U Marijuana (THC) Screen 11/27/19 10:50 WBC Hgb Hct MPV Gran % Lymph % (Auto) Gran # [place] # (Auto) ESR Sodium Carbon Dioxide Creatinine Glucose Hemoglobin A1c C-Reactive Protein Albumin Albumin/Globulin Ratio Urine Glucose (UA) Ur Leukocyte Esterase Urine RBC Ur Squamous Epith Cells Urine Bacteria Ur Amphetamines Screen Suspect positive A U Marijuana (THC) Screen Suspect positive A Meds: Medications Acetaminophen (Tylenol) 650 mg PO Q6HP PRN PRN Reason: PAIN/FEVER > 101 Hydrocodone Bitart/Acetaminophen ([place] 5/325mg) 1 tab PO Q4HP PRN PRN Reason: PAIN LEVEL 3-6 Last Admin: 11/30/19 09:44 Dose: 1 tab Documented by: Albuterol/Ipratropium (Duoneb) 3 ml NEB Q4HP PRN PRN Reason: Shortness Of Breath Dextrose (Dextrose 50%) 0 ml IV UD PRN PRN Reason: Hypoglycemia Diagnostic Test (Pha) (Accu-Chek) 1 each FS ACHS [facility] Last Admin: 11/30/19 07:21 Dose: 1 each Documented by: Diphenhydramine HCl (Benadryl) 25 mg PO HSP PRN PRN Reason: Insomnia Docusate Sodium (Colace) 100 mg PO BID [facility] Last Admin: 11/30/19 09:45 Dose: 100 mg Documented by: Famotidine (Pepcid) 20 mg PO [facility] Last Admin: 11/29/19 20:33 Dose: 20 mg Documented by: Gabapentin (Neurontin) 600 mg PO [facility] Last Admin: 11/29/19 20:33 Dose: 600 mg Documented by: Gabapentin (Neurontin) 400 mg PO TID@0900,1300,1700 [facility] Last Admin: 11/30/19 09:44 Dose: 400 mg Documented by: Glucose (Insta-Glucose) 15 gm PO PRN PRN PRN Reason: Hypoglycemia Heparin Sodium (Porcine) (Heparin) 5,000 unit SQ Q12 [facility] Last Admin: 11/30/19 09:43 Dose: 5,000 unit Documented by: Potassium Chloride 40 meq/ (Dextrose) 520 mls @ 130 mls/hr IV UD PRN PRN Reason: Potassium < 3 Magnesium Sulfate (Magnesium Sulfate) 2 gm in 50 mls @ 50 mls/hr IV UD PRN PRN Reason: Magnesium </= 1.6 Ceftriaxone Sodium 2 gm/ (Dextrose) 50 mls @ 100 mls/hr IV DAILY [facility]; Protocol Last Admin: 11/30/19 10:00 Dose: 100 mls/hr Documented by: Vancomycin HCl 1,500 mg/ (Sodium Chloride) 500 mls @ 333.3 mls/hr IV Q12H [facility] Last Admin: 11/30/19 10:28 Dose: 250 mls/hr Documented by: Insulin Glargine (Lantus) 175 unit SQ DAILY [facility] Last Admin: 11/30/19 09:46 Dose: 175 units Documented by: Insulin Glargine (Lantus) 135 unit SQ HS [facility] Last Admin: 11/29/19 20:34 Dose: 135 units Documented by: Insulin Human Lispro (Humalog) 0 unit SQ [facility]; Protocol Last Admin: 11/30/19 07:22 Dose: 15 unit Documented by: Lamotrigine (Lamictal) 50 mg PO QDAY [facility] Last Admin: 11/30/19 09:45 Dose: 50 mg Documented by: Lisinopril (Zestril) 5 mg PO DAILY [facility] Last Admin: 11/30/19 09:44 Dose: 5 mg Documented by: Lorazepam (Ativan) 0.5 mg IV Q4-6HP PRN PRN Reason: ANXIETY/SEDATION Last Admin: 11/29/19 12:45 Dose: 0.5 mg Documented by: Melatonin (Melatonin 3mg Tablet) 3 mg PO [facility] Morphine Sulfate (Morphine) 0 mg IV Q3HP PRN PRN Reason: Pain Last Admin: 11/30/19 07:22 Dose: 2 mg Documented by: Ondansetron HCl (Zofran) 4 mg IV Q4HP PRN PRN Reason: Nausea And Vomiting Polyethylene Glycol (Miralax) 17 gm PO DAILYP PRN PRN Reason: Constipation Potassium Chloride (Kdur) 40 meq PO UD PRN PRN Reason: Potssium is 3-3.5 Potassium Chloride (Kdur) 40 meq PO UD PRN PRN Reason: Potassium < 3 Quetiapine Fumarate (Seroquel) 75 mg PO QHS [facility] Last Admin: 11/29/19 20:33 Dose: 75 mg Documented by: Scopolamine (Transderm-Scop) 1 patch TOPICAL PREOP PRN PRN Reason: Nausea And Vomiting Senna (Senokot) 2 tab PO DAILYP PRN PRN Reason: Constipation Simvastatin (Zocor) 20 mg PO QPM [facility] Last Admin: 11/29/19 20:33 Dose: 20 mg Documented by: Sodium Chloride (Saline Flush) 10 ml IV Q8 [facility] Last Admin: 11/30/19 07:23 Dose: 10 ml Documented by: Vancomycin HCl (Vancomycin Per Pharmacy) 1 order IV UD [facility]; Protocol Medical - PN: A/P - Time Spent With Patient Total time spent is greater than 50% in coordination of care (as documented) at patient's floor/unit and/or counseling patient: 25 - 35 minutes - Narrative A/P Narrative: * Diabetic Right Foot ulcer/infection with Osteo: -MRI showing cellulitis/abscess/osteo. Status post I&D by podiatry * DM w/neuropathy, uncontrolled: Hyperglycemic on admit, A1c 10.4 -Stable on home dose Lantus 175units in morning and 135 at night * Hyponatremia: resolved * Obesity: Continue with directed therapies * CHRIS: * HTN/HLD: * Anxiety/depression/bipolar: * Tobacco abuse: * Obesity: * GERD: * Substance abuse: with amphetamines IV/Inhaled. Patient would not be a candidate for indwelling catheter for outpatient IV antibiotics. Case management coordinate daily infusion - Plan- -IV Vanco/rocephin, pending BC/WC -Wound care per wound team -basal (titrate as needed) and SSI -Smoking/substance cessation counseling -Referral to see Dr. Haq outpt -ppx: heparin Medical - PN: Qual - VTE Deep Vein Thrombosis/Pulmonary Embolism Present on Admission: No
[2019-11-30 11:26] LABS: Hematocrit 34.2 % (34.1-44.9); Hemoglobin 11.3 g/dL (11.2-15.7); Mean Cell Volume 89.3 fL (80.0-100.0); Mean Platelet Volume 10.8 fL (7.4-10.4); Platelet Count 280 K/mcL (140-440); RBC 3.83 M/mcL (3.59-5.38); Red Cell Distribution Width 13.4 % (11.5-14.5); WBC 16.7 K/mcL (4.50-11.00)
[2019-11-30 11:49] LABS: ALT/SGPT 7 U/l (0-40); AST/SGOT 6 U/l (0-37); Albumin 3.3 gm/dL (3.2-5.2); Albumin/Globulin Ratio 1.1 (1.0-2.3); Alkaline Phosphatase 81 U/L (39-117); Bilirubin,Direct < 0.2 mg/dL (0.0-0.3); Bilirubin,Total < 0.2 mg/dL (0.0-1.0); Blood Urea Nitrogen 20 mg/dl (6-20); Carbon Dioxide 27 mmol/L (22-30); Chloride 96 mmol/L (96-108); Globulin 3.1 gm/dL (2.2-3.7); Glomerular Filtration Rate 109; Glucose 307 mg/dL (70-105); Lactate Dehydrogenase 108 U/L (94-250); Phosphorous 2.9 mg/dL (2.7-4.5); Triglycerides 198 mg/dl (<150); Uric Acid 4.6 mg/dL (2.5-8.0)
[2019-11-30 12:00] LABS: Band Neutrophils % 3 % (0-10); Lymphocytes % 13 % (15-49); Monocytes % (Manual) 5 % (1-12); Platelet Estimate NORMAL (NORMAL); RBC Morphology NORMAL (NORMAL); Reactive Lymphocytes 2 % (0-2); Segmented Neutrophils % 77 % (38-78)
[2019-11-30 15:38] LABS: Cannabinoid Confirmation POSITIVE (N)
[2019-11-30] MEDS: FAMOTIDINE 20 MG TABLET PO SCH (20:30)
[2019-11-30] MEDS: SIMVASTATIN 20 MG TABLET PO SCH (20:30)
[2019-11-30] MEDS: QUEtiapine 25 MG TABLET PO SCH (20:30)
[2019-11-30] MEDS: GABAPENTIN 300 MG CAPSULE PO SCH (20:30)
[2019-12-01 05:57] LABS: Hematocrit 34.1 % (34.1-44.9); Mean Cell Volume 90.2 fL (80.0-100.0); Mean Corpuscular HGB Conc 32.3 g/dL (31.0-36.0); Mean Platelet Volume 10.3 fL (7.4-10.4); Platelet Count 259 K/mcL (140-440); RBC 3.78 M/mcL (3.59-5.38); Red Cell Distribution Width 13.6 % (11.5-14.5); WBC 12.4 K/mcL (4.50-11.00)
[2019-12-01] MEDS: 0.9 % SODIUM CHLORIDE 10 ML SYRINGE IV SCH ×3 (06:25→21:13)
[2019-12-01 06:34] LABS: ALT/SGPT 7 U/l (0-40); AST/SGOT 7 U/l (0-37); Albumin 2.9 gm/dL (3.2-5.2); Alkaline Phosphatase 68 U/L (39-117); Bilirubin,Direct < 0.2 mg/dL (0.0-0.3); Bilirubin,Total < 0.2 mg/dL (0.0-1.0); Blood Urea Nitrogen 19 mg/dl (6-20); Calcium 8.5 mg/dl (8.6-10.4); Carbon Dioxide 23 mmol/L (22-30); Chloride 104 mmol/L (96-108); Globulin 2.9 gm/dL (2.2-3.7); Glomerular Filtration Rate 115; Glucose 109 mg/dL (70-105); Lactate Dehydrogenase 125 U/L (94-250); Phosphorous 3.9 mg/dL (2.7-4.5); Triglycerides 138 mg/dl (<150); Uric Acid 4.5 mg/dL (2.5-8.0)
[2019-12-01] MEDS: INSULIN LISPRO 1 UNIT/0.01 ML UNIT SQ SCH ×4 (06:45→21:11)
[2019-12-01 07:26] LABS: Band Neutrophils % 2 % (0-10); Basophils % (Manual) 1 % (0-2); Eosinophils % (Manual) 1 % (0-7); Lymphocytes % 31 % (15-49); Monocytes % (Manual) 4 % (1-12); Platelet Estimate NORMAL (NORMAL); RBC Morphology NORMAL (NORMAL); Segmented Neutrophils % 61 % (38-78)
[2019-12-01] MEDS: LORazepam 2 MG/ML VIAL IV PRN ×4 (07:49→21:36)
[2019-12-01] MEDS: HEPARIN 5,000 UNIT/ML VIAL SQ SCH ×2 (08:53→21:12)
[2019-12-01] MEDS: DOCUSATE SODIUM 100 MG CAPSULE PO SCH ×2 (08:54→21:12)
[2019-12-01] MEDS: lamoTRIgine 25 MG TABLET PO SCH (08:54)
[2019-12-01] MEDS: LISINOPRIL 5 MG TABLET PO SCH (08:54)
[2019-12-01] MEDS: GABAPENTIN 400 MG CAPSULE PO SCH ×3 (08:54→16:57)
[2019-12-01] MEDS: cefTRIAXone 2 GM in DEXTROSE 5% IN WATER 50 ML IV SCH (09:14)
[2019-12-01] MEDS: INSULIN GLARGINE, HUMAN 1 UNIT/0.01 ML SQ SCH ×2 (09:15→21:11)
[2019-12-01] MEDS: VANCOMYCIN 1,500 MG in 0.9 % SODIUM CHLORIDE 500 ML IV SCH ×2 (09:52→21:12)
--- NOTE | 2019-12-01 14:20 | Infectious Disease Consult ---
History of Present Illness Patient information: Note initiated : 12/01/19 at 2:17 pm Service Date, if different from initiated Date: [] Patient: Dolores Sow 49 y/o F admitted on 11/27/19 for diabetic foot ulcer, right foot. Chief Complaint: [] Consult date: 12/01/19 Requesting Physician: Nithin Rodriguez Reason for Consult: right foot osteomyelitis Chief complaint: I have pain in my right foot History of present illness: 49 year old female presented with increasing redness, swelling which started around November 23-. Her redness had involved her entire foot and ankle when she presented to [facility] ED on 11/26. She denied any fever, chills, trauma to the foot. Pt has a dog who licks the dressing but not foot. In ED, Pt was afebrile, BP 131/77, RR 16, HR 87, WBC 17.6, Cr 0.6. Pt was admitted. MRI done in ED showed "3 cm lateral ulceration in the mid foot. Deep to the ulceration, a 4 cm abscess has disrupted the plantar ligament and plantar fascia extending to the cortex of the calcaneus and cuboid. There is marked synovitis throughout the hindfoot and midfoot joints almost certainly representing septic arthritis. Subtotal inflammatory destruction of the lateral cuneiform and navicular with moderate erosive changes in talar head, middle/medial cuneiform, anterior calcaneus and cuboid appreciated. Complete dislocation of the talonavicular joint is due to inflammation. Inflammatory loss of osseous and ligamentous integrity results in complete collapse of the plantar arch with a rocker-bottom appearance". Pt was started on IV Vanc and IV Ceftriaxone. Wound Cx and MRSA nasal PCR was sent. Pt underwent surgical debridement on 11/29/19 with Op Cx sent. At time of visit, pt confirmed above Hx. Endorsed active meth use with last injection about few days ago. Mentions that she uses clean needles (diabetic supplies) and even distributes to others injecting drugs with her. She endorses receipt of IV antibiotics in past by Dr Galeana at [facility]. Review of Systems All systems PM: reviewed and no additional remarkable complaints except as stat ed Constitutional: as per HPI Past History Past medical history: DM2, A1C ~10, on insulin injection drug use: methamphetamines, last use few days ago obesity Medications and Allergies Home Medications Medication Instructions Recorded Confirmed Type multivitamin 1 tab PO QDAY #90 tab 04/20/15 12/02/19 Rx Naproxen [EC-Naprosyn] 375 mg PO 1HRACBID #20 tablet. 07/27/15 12/02/19 Rx gabapentin 400 mg capsule 400 mg PO TID #90 cap 12/18/15 12/02/19 Rx gabapentin 600 mg tablet,extended 600 mg PO HS #30 tab 12/18/15 12/02/19 Rx release 24 hr insulin glargine 100 unit/mL (3 135 unit SUB-Q QHS #15 ml 12/18/15 12/02/19 Rx mL) subcutaneous pen insulin glargine 100 unit/mL 175 unit SUB-Q .am #10 ml 12/18/15 12/02/19 Rx subcutaneous solution lamotrigine 25 mg tablet 50 mg PO QDAY #60 tab 12/18/15 12/02/19 Rx lisinopril 20 mg tablet 20 mg PO DAILY #30 tab 12/18/15 12/02/19 Rx quetiapine 25 mg tablet 75 mg PO QHS #90 tab 12/18/15 12/02/19 Rx simvastatin 20 mg tablet 20 mg PO QPM #30 tab 12/18/15 12/02/19 Rx triamterene 37.5 1 tab-cap PO DAILY #30 tab 12/18/15 12/02/19 Rx mg-hydrochlorothiazide 25 mg tablet insulin aspart U-100 100 unit/mL See Dose Instructions SUB-Q TID 02/21/16 12/02/19 Rx subcutaneous solution #10 ml Clindamycin HCl [Cleocin] 300 mg PO TID #30 cap 05/28/19 12/02/19 Rx Allergies Allergy/AdvReac Type Severity Reaction Status Date / Time cephalexin Allergy Mild Rash Verified 11/29/19 06:37 Penicillins Allergy Mild Rash Verified 11/29/19 06:37 Physical Examination Vital signs: Temp Pulse Resp BP Pulse Ox 35.9 C L 79 20 180/92 96 12/01/19 12:00 12/01/19 12:00 12/01/19 12:00 12/01/19 12:00 12/01/19 12:00 General appearance: no acute distress Eyes pulmonary: nonicteric ENT: oropharynx moist Integumentary: other (multiple scar morelos) Extremities: other (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 Rt foot is swollen, tender, red (in the middle, around the incision sites). Pus drainage from the plantar ulcer and ulcer on lateral aspect of foot. Temp is same in both feet. Difficult to palpate DP artery on right foot, but it is palpable in left foot. No signs of inflammation involving the legs) other (unpredictable. Started crying all of a sudden and then normal quickly. Demonstrated this sudden change of mood multiple times.) Results - Laboratory Findings CBC and BMP: 12/02/19 05:05 12/02/19 05:05 Abnormal lab findings: Abnormal Labs 11/27/19 11/27/19 11/27/19 10:50 11:28 11:28 WBC 17.6 H Hgb Hct MPV 11.8 H Gran % 79.9 H Lymph % (Auto) 11.1 L Gran # 14.05 H [place] # (Auto) 1.22 H Lymphocytes % ESR 57 H Sodium Carbon Dioxide Creatinine Glucose Hemoglobin A1c Calcium C-Reactive Protein Total Protein Albumin Albumin/Globulin Ratio Triglycerides Urine Glucose (UA) Ur Leukocyte Esterase Urine RBC Ur Squamous Epith Cells Urine Bacteria Ur Amphetamines Screen Suspect positive A U Marijuana (THC) Screen Suspect positive A 11/27/19 11/27/19 11/28/19 11:28 13:14 05:25 WBC Hgb 10.9 L Hct 33.7 L MPV 10.8 H Gran % Lymph % (Auto) Gran # [place] # (Auto) Lymphocytes % ESR Sodium 130 L Carbon Dioxide 20 L Creatinine Glucose 331 H Hemoglobin A1c 10.4 H Calcium C-Reactive Protein 13.4 H Total Protein Albumin 3.1 L Albumin/Globulin Ratio 0.9 L Triglycerides Urine Glucose (UA) Ur Leukocyte Esterase Urine RBC Ur Squamous Epith Cells Urine Bacteria Ur Amphetamines Screen U Marijuana (THC) Screen 11/28/19 11/28/19 11/28/19 05:25 05:25 15:07 WBC Hgb Hct MPV Gran % Lymph % (Auto) Gran # [place] # (Auto) Lymphocytes % ESR Sodium Carbon Dioxide Creatinine 0.5 L Glucose 117 H Hemoglobin A1c Calcium C-Reactive Protein 10.0 H Total Protein Albumin 3.0 L Albumin/Globulin Ratio Triglycerides Urine Glucose (UA) >=500 A Ur Leukocyte Esterase 500 A Urine RBC 2 H Ur Squamous Epith Cells 9 H Urine Bacteria Few A Ur Amphetamines Screen U Marijuana (THC) Screen 11/29/19 11/30/19 11/30/19 05:40 10:49 10:49 WBC 16.7 H Hgb Hct MPV 10.8 H Gran % Lymph % (Auto) Gran # [place] # (Auto) Lymphocytes % 13 L ESR Sodium Carbon Dioxide Creatinine 0.5 L Glucose 141 H 307 H Hemoglobin A1c Calcium C-Reactive Protein Total Protein Albumin Albumin/Globulin Ratio Triglycerides 198 H Urine Glucose (UA) Ur Leukocyte Esterase Urine RBC Ur Squamous Epith Cells Urine Bacteria Ur Amphetamines Screen U Marijuana (THC) Screen 12/01/19 12/01/19 05:20 05:20 WBC 12.4 H Hgb 11.0 L Hct MPV Gran % Lymph % (Auto) Gran # [place] # (Auto) Lymphocytes % ESR Sodium Carbon Dioxide Creatinine 0.5 L Glucose 109 H Hemoglobin A1c Calcium 8.5 L C-Reactive Protein Total Protein 5.8 L Albumin 2.9 L Albumin/Globulin Ratio Triglycerides Urine Glucose (UA) Ur Leukocyte Esterase Urine RBC Ur Squamous Epith Cells Urine Bacteria Ur Amphetamines Screen U Marijuana (THC) Screen Microbiology: Microbiology 11/29/19 11:28 Foot - Right Gram Stain - Final 11/29/19 11:28 Foot - Right Gram Stain - Final 11/29/19 11:28 Foot - Right Anaerobic Culture - Preliminary 11/29/19 11:28 Foot - Right Gram Stain - Final 11/29/19 11:28 Foot - Right Wound Culture - Preliminary Strep agalactiae - (group b) Gram negative bacillus 11/27/19 16:25 Foot - Right Gram Stain - Final 11/27/19 16:25 Foot - Right Wound Culture - Final Methicillin resistant s.aureus Strep agalactiae - (group b) Escherichia coli 11/27/19 18:00 Nose MRSA (PCR) - Final - Diagnostic Findings Additional studies: MRI of right foot: 3 cm lateral ulceration in the mid foot. Deep to the ulceration, a 4 cm abscess has disrupted the plantar ligament and plantar fascia extending to the cortex of the calcaneus and cuboid. There is marked synovitis throughout the hindfoot and midfoot joints almost certainly representing septic arthritis. Subtotal inflammatory destruction of the lateral cuneiform and navicular with moderate erosive changes in talar head, middle/medial cuneiform, anterior calcaneus and cuboid appreciated. Complete dislocation of the talonavicular joint is due to inflammation. Inflammatory loss of osseous and ligamentous integrity results in complete collapse of the plantar arch with a rocker-bottom appearance. Assessment and Plan - Narrative A/P Narrative: A: 1. Right foot osteomyelitis: based on MRI findings and clinic exam - POD 2 after surgical debridement - risk factors of Type 2 DM, charcot arthropathy, injection drug use, smoking - wound Cx: superficial Cx from 11/26 growing MRSA, E coli, Gp B Strept. Operative Cx from 11/28 growing Gp B Strept, E coli (sens to ceftriaxone), MRSA - baseline ESR 57 2. Obesity 3. Type 2 DM: A1C of 10 at admission 4. Active injection drug use: injected meth last Thursday (11/23/19) Recommendations: - Continue IV vanc [1.5 gm q12 hrs] per pharmacy assisted dosing. Check vanc levels before the am dose tomorrow. Target level 15-20 - Continue IV Ceftriaxone 2 gm q24 hrs - will plan for 6 weeks of IV antibiotics counting from day of her surgery (11/29/19) - If pt would be staying on swing bed, consider PICC line placement. If pt was to leave AMA, PICC line should be pulled out will follow Shiv Boyd MD Infectious Diseases
--- NOTE | 2019-12-01 16:16 | Internal Med Progress Note ---
Medical - PN: Subj Patient information: Note initiated : 12/01/19 at 4:13 pm Service Date, if different from initiated Date: [] Patient: Dolores Sow a 49 y/o F admitted on 11/27/19 for diabetic foot ulcer, right foot. Chief Complaint: [] Interval history: Ms. Sow is a 49 year old F Presents the ED with diabetic foot ulcer that is becoming increasingly red , warm, and tender. She is being followed by wound care outpatient. Patient states that when she went to the wound care on Thursday for routine check she had a red swollen tender right foot. Since that time the redness has increased to include her entire foot with swelling around her right foot. Vital signs are stable this time. She was found to have a leukocytosis of 17. Lactate okay. MRI of the foot done in ED and pending results Dr. gore contacted from the ED. Patient denies fevers, appears anxious. 11/27 Patient slept well last night. Denies any fevers or chills or new complaints. Right foot chip applying machine tender. Was quite defensive when I asked her about methamphetamine use, uses IV and inhaled. Explained to her the resources we have, including Dr. Haq. 11/28-patient doing well. Surgical I&D today. No overnight events or fever chills. On antibiotic coverage. No concerns per nursing staff. White count down from 17.6-9.6. Sodium improved from 1 30-1 34. 11/29-patient status post I&D by podiatry. Ongoing antibiotic. Staph aureus last enterococcus on wound cultures. Final sensitivities pending. No overnight fever chills. Wound care ongoing. History of methamphetamine use with positive drug screen. Patient would not be a candidate for indwelling IV line for long- term antibiotics due to high risk catheter misuse for IV drugs. Case management coordinate daily outpatient infusion. Final antibiotics will be based on cultures 11/30-patient doing well. MRSA on cultures. On antibiotics per ID. Patient likely continue IV antibiotics during current hospitalization and then transitio n to swing bed status for continued postoperative care/antibiotics. No overnight events. Emotionally labile. Remains anxious. White count 12.4. Patient continues to demand high-calorie diet despite efforts to maintain a consistent carb diet. Patient's blood sugars have been as high as 300 due to erratic food intake - Constitutional Vitals: Vital Signs Temp Pulse Resp BP Pulse Ox 96.6 F L 79 20 180/92 96 12/01/19 12:00 12/01/19 12:00 12/01/19 12:00 12/01/19 12:00 12/01/19 12:00 Period Temp Pulse Resp BP Sys/Wilkins Pulse Ox Last 24 Hr 96.6 F-98.4 F 77-90 20-22 105-180/63-92 93-98 Intake and Output 12/01/19 12/01/19 12/01/19 05:59 13:59 21:59 Intake Total 675 350 400 Output Total 800 1600 500 Balance -125 -1250 -100 Intake & Output: Intake & Output 12/01/19 12/01/19 12/01/19 05:59 13:59 21:59 Intake Total 675 350 400 Output Total 800 1600 500 Balance -125 -1250 -100 Intake: IV 500 Vancomycin 1,500 mg In Sodium 500 Chloride 0.9% 500 ml @ 333.3 mls/hr IV Q12H [facility] Rx#: [id number] Oral 175 350 400 Output: Void Amount 800 1600 500 Other: Meal Breakfast Lunch Percent of Meal Consumed 100% 100% Feeding Ability Independent Independent Urine Appearance Clear Urine Color Bright Yellow Urine Odor Normal General appearance: no acute distress Exam: Emotionally labile Anxious Nonlabored breathing Right ankle dressing Medical - PN: Obj Da - Labs CBC & Chem 7: 12/01/19 05:20 12/01/19 05:20 Labs: Abnormal Lab Results 12/01/19 12/01/19 11/30/19 05:20 05:20 10:49 WBC 12.4 H Hgb 11.0 L MPV Lymphocytes % Creatinine 0.5 L Glucose 109 H 307 H Calcium 8.5 L Total Protein 5.8 L Albumin 2.9 L Triglycerides 198 H 11/30/19 11/29/19 10:49 05:40 WBC 16.7 H Hgb MPV 10.8 H Lymphocytes % 13 L Creatinine 0.5 L Glucose 141 H Calcium Total Protein Albumin Triglycerides Meds: Medications Acetaminophen (Tylenol) 650 mg PO Q6HP PRN PRN Reason: PAIN/FEVER > 101 Hydrocodone Bitart/Acetaminophen ([place] 5/325mg) 1 tab PO Q4HP PRN PRN Reason: PAIN LEVEL 3-6 Last Admin: 11/30/19 13:47 Dose: 1 tab Documented by: Albuterol/Ipratropium (Duoneb) 3 ml NEB Q4HP PRN PRN Reason: Shortness Of Breath Dextrose (Dextrose 50%) 0 ml IV UD PRN PRN Reason: Hypoglycemia Diagnostic Test (Pha) (Accu-Chek) 1 each FS ACHS [facility] Last Admin: 12/01/19 11:32 Dose: 1 each Documented by: Diphenhydramine HCl (Benadryl) 25 mg PO HSP PRN PRN Reason: Insomnia Docusate Sodium (Colace) 100 mg PO BID [facility] Last Admin: 12/01/19 08:54 Dose: 100 mg Documented by: Famotidine (Pepcid) 20 mg PO HS [facility] Last Admin: 11/30/19 20:30 Dose: 20 mg Documented by: Gabapentin (Neurontin) 600 mg PO HS [facility] Last Admin: 11/30/19 20:30 Dose: 600 mg Documented by: Gabapentin (Neurontin) 400 mg PO TID@0900,1300,1700 [facility] Last Admin: 12/01/19 14:05 Dose: 400 mg Documented by: Glucose (Insta-Glucose) 15 gm PO PRN PRN PRN Reason: Hypoglycemia Heparin Sodium (Porcine) (Heparin) 5,000 unit SQ Q12 [facility] Last Admin: 12/01/19 08:53 Dose: 5,000 unit Documented by: Potassium Chloride 40 meq/ (Dextrose) 520 mls @ 130 mls/hr IV UD PRN PRN Reason: Potassium < 3 Magnesium Sulfate (Magnesium Sulfate) 2 gm in 50 mls @ 50 mls/hr IV UD PRN PRN Reason: Magnesium </= 1.6 Ceftriaxone Sodium 2 gm/ (Dextrose) 50 mls @ 100 mls/hr IV DAILY [facility]; Protocol Last Admin: 12/01/19 09:14 Dose: 100 mls/hr Documented by: Vancomycin HCl 1,500 mg/ (Sodium Chloride) 500 mls @ 333.3 mls/hr IV Q12H [facility] Last Admin: 12/01/19 09:52 Dose: 250 mls/hr Documented by: Insulin Glargine (Lantus) 175 unit SQ DAILY [facility] Last Admin: 12/01/19 09:15 Dose: Not Given Documented by: Insulin Glargine (Lantus) 135 unit SQ HS [facility] Last Admin: 11/30/19 20:33 Dose: 135 units Documented by: Insulin Human Lispro (Humalog) 0 unit SQ [facility]; Protocol Last Admin: 12/01/19 11:49 Dose: 3 unit Documented by: Lamotrigine (Lamictal) 50 mg PO QDAY [facility] Last Admin: 12/01/19 08:54 Dose: 50 mg Documented by: Lisinopril (Zestril) 5 mg PO DAILY [facility] Last Admin: 12/01/19 08:54 Dose: 5 mg Documented by: Lorazepam (Ativan) 0.5 mg IV Q4-6HP PRN PRN Reason: ANXIETY/SEDATION Last Admin: 12/01/19 12:08 Dose: 0.5 mg Documented by: Melatonin (Melatonin 3mg Tablet) 3 mg PO [facility] Morphine Sulfate (Morphine) 0 mg IV Q3HP PRN PRN Reason: Pain Last Admin: 12/01/19 14:13 Dose: 2 mg Documented by: Ondansetron HCl (Zofran) 4 mg IV Q4HP PRN PRN Reason: Nausea And Vomiting Polyethylene Glycol (Miralax) 17 gm PO DAILYP PRN PRN Reason: Constipation Potassium Chloride (Kdur) 40 meq PO UD PRN PRN Reason: Potssium is 3-3.5 Potassium Chloride (Kdur) 40 meq PO UD PRN PRN Reason: Potassium < 3 Quetiapine Fumarate (Seroquel) 75 mg PO QHS [facility] Last Admin: 11/30/19 20:30 Dose: 75 mg Documented by: Scopolamine (Transderm-Scop) 1 patch TOPICAL PREOP PRN PRN Reason: Nausea And Vomiting Senna (Senokot) 2 tab PO DAILYP PRN PRN Reason: Constipation Simvastatin (Zocor) 20 mg PO QPM [facility] Last Admin: 11/30/19 20:30 Dose: 20 mg Documented by: Sodium Chloride (Saline Flush) 10 ml IV Q8 [facility] Last Admin: 12/01/19 14:13 Dose: 10 ml Documented by: Vancomycin HCl (Vancomycin Per Pharmacy) 1 order IV UD [facility]; Protocol Medical - PN: A/P - Time Spent With Patient Total time spent is greater than 50% in coordination of care (as documented) at patient's floor/unit and/or counseling patient: 25 - 35 minutes - Narrative A/P Narrative: * Diabetic Right Foot ulcer/infection with Osteo: -MRI showing cellulitis/abscess/osteo. Status post I&D by podiatry. MRSA on culture. Continue IV vancomycin * DM w/neuropathy, uncontrolled: Patient remains noncompliant with consistent carbohydrate diet. A1c 10.4. Continue Lantus 175units in morning and 135 at night. Continue gabapentin * Hyponatremia: resolved * Obesity: Continue with directed therapies * CHRIS: * HTN/HLD: On lisinopril * Anxiety/depression/bipolar: Psychiatry consult if worsening. Currently on quetiapine * Tobacco abuse: * Obesity: * GERD: * Substance abuse: with amphetamines IV/Inhaled. Patient would not be a candidate for indwelling catheter for outpatient IV antibiotics. Case management coordinate daily infusion - Plan- -Continue IV antibiotics per ID -Wound care per wound team -Smoking/substance cessation counseling -Referral to see Dr. Haq outpt -ppx: heparin Medical - PN: Qual - VTE Deep Vein Thrombosis/Pulmonary Embolism Present on Admission: No
[2019-12-01] MEDS: FAMOTIDINE 20 MG TABLET PO SCH (21:12)
[2019-12-01] MEDS: GABAPENTIN 300 MG CAPSULE PO SCH (21:12)
[2019-12-01] MEDS: SIMVASTATIN 20 MG TABLET PO SCH (21:12)
[2019-12-01] MEDS: QUEtiapine 25 MG TABLET PO SCH (21:12)
[2019-12-02 05:48] LABS: Hematocrit 36.4 % (34.1-44.9); Hemoglobin 11.7 g/dL (11.2-15.7); Mean Cell Volume 89.9 fL (80.0-100.0); Mean Corpuscular HGB Conc 32.1 g/dL (31.0-36.0); Mean Platelet Volume 10.3 fL (7.4-10.4); Platelet Count 268 K/mcL (140-440); RBC 4.05 M/mcL (3.59-5.38); Red Cell Distribution Width 13.6 % (11.5-14.5)
[2019-12-02] MEDS: 0.9 % SODIUM CHLORIDE 10 ML SYRINGE IV SCH ×2 (06:03→12:59)
[2019-12-02 06:14] LABS: ALT/SGPT 14 U/l (0-40); AST/SGOT 20 U/l (0-37); Albumin/Globulin Ratio 0.9 (1.0-2.3); Alkaline Phosphatase 75 U/L (39-117); Bilirubin,Direct < 0.2 mg/dL (0.0-0.3); Bilirubin,Total < 0.2 mg/dL (0.0-1.0); Blood Urea Nitrogen 13 mg/dl (6-20); Calcium 8.6 mg/dl (8.6-10.4); Carbon Dioxide 26 mmol/L (22-30); Chloride 100 mmol/L (96-108); Globulin 3.2 gm/dL (2.2-3.7); Glomerular Filtration Rate 115; Glucose 75 mg/dL (70-105); Lactate Dehydrogenase 152 U/L (94-250); Phosphorous 4.2 mg/dL (2.7-4.5); Triglycerides 186 mg/dl (<150); Uric Acid 4.3 mg/dL (2.5-8.0)
[2019-12-02 06:40] LABS: Band Neutrophils % 2 % (0-10); Eosinophils % (Manual) 6 % (0-7); Lymphocytes % 34 % (15-49); Metamyelocytes % 2 % (0-0); Monocytes % (Manual) 8 % (1-12); Platelet Estimate NORMAL (NORMAL); RBC Morphology NORMAL (NORMAL); Segmented Neutrophils % 48 % (38-78)
--- NOTE | 2019-12-02 07:37 | Internal Med Progress Note ---
Medical - PN: Subj Patient information: Note initiated : 12/02/19 at 7:35 am Service Date, if different from initiated Date: [] Patient: Dolores Sow a 49 y/o F admitted on 11/27/19 for diabetic foot ulcer, right foot. Chief Complaint: [] Interval history: Ms. Sow is a 49 year old F Presents the ED with diabetic foot ulcer that is becoming increasingly red , warm, and tender. She is being followed by wound care outpatient. Patient states that when she went to the wound care on Thursday for routine check she had a red swollen tender right foot. Since that time the redness has increased to include her entire foot with swelling around her right foot. Vital signs are stable this time. She was found to have a leukocytosis of 17. Lactate okay. MRI of the foot done in ED and pending results Dr. gore contacted from the ED. Patient denies fevers, appears anxious. 11/27 Patient slept well last night. Denies any fevers or chills or new complaints. Right foot yeast distiller. Was quite defensive when I asked her about methamphetamine use, uses IV and inhaled. Explained to her the resources we have, including Dr. Haq. 11/28-patient doing well. Surgical I&D today. No overnight events or fever chills. On antibiotic coverage. No concerns per nursing staff. White count down from 17.6-9.6. Sodium improved from 1 30-1 34. 11/29-patient status post I&D by podiatry. Ongoing antibiotic. Staph aureus last enterococcus on wound cultures. Final sensitivities pending. No overnight fever chills. Wound care ongoing. History of methamphetamine use with positive drug screen. Patient would not be a candidate for indwelling IV line for long- term antibiotics due to high risk catheter misuse for IV drugs. Case management coordinate daily outpatient infusion. Final antibiotics will be based on cultures 11/30-patient doing well. MRSA on cultures. On antibiotics per ID. Patient likely continue IV antibiotics during current hospitalization and then transitio n to swing bed status for continued postoperative care/antibiotics. No overnight events. Emotionally labile. Remains anxious. White count 12.4. Patient continues to demand high-calorie diet despite efforts to maintain a consistent carb diet. Patient's blood sugars have been as high as 300 due to erratic food intake - Constitutional Vitals: Vital Signs Temp Pulse Resp BP Pulse Ox 98.3 F 82 20 142/83 98 12/02/19 07:09 12/02/19 04:00 12/02/19 07:09 12/02/19 07:09 12/02/19 07:09 Period Temp Pulse Resp BP Sys/Wilkins Pulse Ox Last 24 Hr 96.6 F-98.7 F 77-91 16-20 114-180/70-93 94-98 Intake and Output 12/01/19 12/02/19 12/02/19 21:59 05:59 13:59 Intake Total 2710 1540 Output Total 701 1200 Balance 2008 340 Weight 253 lb Intake & Output: Intake & Output 12/01/19 12/02/19 12/02/19 21:59 05:59 13:59 Intake Total 2710 1540 Output Total 701 1200 Balance 2008 340 Weight 253 lb Intake: IV 550 500 Vancomycin 1,500 mg In Sodium 500 500 Chloride 0.9% 500 ml @ 333.3 mls/hr IV Q12H [facility] Rx#: [id number] Rocephin 2 gm In Dextrose 5% in 50 Water 50 ml @ 100 mls/hr IV DAILY [facility] Rx#:[id number] Oral 1680 800 GI Tube Flush 480 240 Output: Void Amount 701 1200 Other: Meal Nourishment/Supplement Percent of Meal Consumed 100% 100% Feeding Ability Independent Independent Urine Appearance Clear Clear Urine Color Pale Pale Urine Odor Normal Normal Stool Size Large Stool Color Brown Stool Consistency Soft # Voids 1 Medical - PN: Obj Da - Labs CBC & Chem 7: 12/02/19 05:05 12/02/19 05:05 Labs: Abnormal Lab Results 12/02/19 12/02/19 12/01/19 05:05 05:05 05:20 WBC Hgb MPV Lymphocytes % Metamyelocytes % 2 H Creatinine 0.5 L 0.5 L Glucose 109 H Calcium 8.5 L GGT 39 H Total Protein 5.8 L Albumin 3.0 L 2.9 L Albumin/Globulin Ratio 0.9 L Triglycerides 186 H 12/01/19 11/30/19 11/30/19 05:20 10:49 10:49 WBC 12.4 H 16.7 H Hgb 11.0 L MPV 10.8 H Lymphocytes % 13 L Metamyelocytes % Creatinine Glucose 307 H Calcium GGT Total Protein Albumin Albumin/Globulin Ratio Triglycerides 198 H Meds: Medications Acetaminophen (Tylenol) 650 mg PO Q6HP PRN PRN Reason: PAIN/FEVER > 101 Hydrocodone Bitart/Acetaminophen ([place] 5/325mg) 1 tab PO Q4HP PRN PRN Reason: PAIN LEVEL 3-6 Last Admin: 11/30/19 13:47 Dose: 1 tab Documented by: Albuterol/Ipratropium (Duoneb) 3 ml NEB Q4HP PRN PRN Reason: Shortness Of Breath Dextrose (Dextrose 50%) 0 ml IV UD PRN PRN Reason: Hypoglycemia Diagnostic Test (Pha) (Accu-Chek) 1 each FS ACHS [facility] Last Admin: 12/01/19 20:46 Dose: 1 each Documented by: Diphenhydramine HCl (Benadryl) 25 mg PO HSP PRN PRN Reason: Insomnia Docusate Sodium (Colace) 100 mg PO BID [facility] Last Admin: 12/01/19 21:12 Dose: 100 mg Documented by: Famotidine (Pepcid) 20 mg PO HS [facility] Last Admin: 12/01/19 21:12 Dose: 20 mg Documented by: Gabapentin (Neurontin) 600 mg PO HS [facility] Last Admin: 12/01/19 21:12 Dose: 600 mg Documented by: Gabapentin (Neurontin) 400 mg PO TID@0900,1300,1700 [facility] Last Admin: 12/01/19 16:57 Dose: 400 mg Documented by: Glucose (Insta-Glucose) 15 gm PO PRN PRN PRN Reason: Hypoglycemia Heparin Sodium (Porcine) (Heparin) 5,000 unit SQ Q12 [facility] Last Admin: 12/01/19 21:12 Dose: 5,000 unit Documented by: Potassium Chloride 40 meq/ (Dextrose) 520 mls @ 130 mls/hr IV UD PRN PRN Reason: Potassium < 3 Magnesium Sulfate (Magnesium Sulfate) 2 gm in 50 mls @ 50 mls/hr IV UD PRN PRN Reason: Magnesium </= 1.6 Ceftriaxone Sodium 2 gm/ (Dextrose) 50 mls @ 100 mls/hr IV DAILY [facility]; Protocol Last Infusion: 12/01/19 17:32 Dose: Infused Documented by: Vancomycin HCl 1,500 mg/ (Sodium Chloride) 500 mls @ 333.3 mls/hr IV Q12H [facility] Last Infusion: 12/01/19 23:23 Dose: Infused Documented by: Insulin Glargine (Lantus) 175 unit SQ DAILY [facility] Last Admin: 12/01/19 09:15 Dose: Not Given Documented by: Insulin Glargine (Lantus) 135 unit SQ HS [facility] Last Admin: 12/01/19 21:11 Dose: 135 units Documented by: Insulin Human Lispro (Humalog) 0 unit SQ [facility]; Protocol Last Admin: 12/01/19 21:11 Dose: 12 unit Documented by: Lamotrigine (Lamictal) 50 mg PO QDAY [facility] Last Admin: 12/01/19 08:54 Dose: 50 mg Documented by: Lisinopril (Zestril) 5 mg PO DAILY [facility] Last Admin: 12/01/19 08:54 Dose: 5 mg Documented by: Lorazepam (Ativan) 0.5 mg IV Q4-6HP PRN PRN Reason: ANXIETY/SEDATION Last Admin: 12/01/19 21:36 Dose: 0.5 mg Documented by: Melatonin (Melatonin 3mg Tablet) 3 mg PO [facility] Morphine Sulfate (Morphine) 0 mg IV Q3HP PRN PRN Reason: Pain Last Admin: 12/01/19 21:13 Dose: 3 mg Documented by: Ondansetron HCl (Zofran) 4 mg IV Q4HP PRN PRN Reason: Nausea And Vomiting Polyethylene Glycol (Miralax) 17 gm PO DAILYP PRN PRN Reason: Constipation Potassium Chloride (Kdur) 40 meq PO UD PRN PRN Reason: Potssium is 3-3.5 Potassium Chloride (Kdur) 40 meq PO UD PRN PRN Reason: Potassium < 3 Quetiapine Fumarate (Seroquel) 75 mg PO QHS [facility] Last Admin: 12/01/19 21:12 Dose: 75 mg Documented by: Scopolamine (Transderm-Scop) 1 patch TOPICAL PREOP PRN PRN Reason: Nausea And Vomiting Senna (Senokot) 2 tab PO DAILYP PRN PRN Reason: Constipation Simvastatin (Zocor) 20 mg PO QPM [facility] Last Admin: 12/01/19 21:12 Dose: 20 mg Documented by: Sodium Chloride (Saline Flush) 10 ml IV Q8 [facility] Last Admin: 12/02/19 06:03 Dose: Not Given Documented by: Vancomycin HCl (Vancomycin Per Pharmacy) 1 order IV UD [facility]; Protocol Medical - PN: A/P - Time Spent With Patient Total time spent is greater than 50% in coordination of care (as documented) at patient's floor/unit and/or counseling patient: 25 - 35 minutes - Narrative A/P Narrative: * Diabetic Right Foot ulcer/infection with Osteo: -MRI showing cellulitis/abscess/osteo. Status post I&D by podiatry. MRSA/GBS/E. coli on culture. Continue IV vancomycin/Rocephin for 6 weeks per ID. If patient stays admitted to swing bed, PICC line can be placed per ID * DM w/neuropathy, uncontrolled: Patient remains noncompliant with consistent carbohydrate diet. A1c 10.4. Continue Lantus 175units in morning and 135 at night. Continue gabapentin. Blood sugars now at goal around 100 fasting * Hyponatremia: resolved * Obesity: Continue dietary intervention/directed therapies * CHRIS: Not on CPAP. Will need outpatient sleep study * HTN/HLD: On lisinopril * Anxiety/depression/bipolar: Psychiatry consult if worsening. Currently on quetiapine * Tobacco abuse: Counseled for cessation * Substance abuse: with amphetamines IV/Inhaled. Patient would not be a candidate for indwelling catheter for outpatient IV antibiotics. Case management coordinate daily infusion * Prophylaxis heparin Plan- -Continue IV antibiotics per ID for 6 weeks -Wound care per wound team -PT OT nutrition support -Referral to see Dr. Haq outpt Medical - PN: Qual - VTE Deep Vein Thrombosis/Pulmonary Embolism Present on Admission: No
[2019-12-02] MEDS: INSULIN LISPRO 1 UNIT/0.01 ML UNIT SQ SCH ×2 (07:52→11:31)
[2019-12-02] MEDS: GABAPENTIN 400 MG CAPSULE PO SCH ×3 (08:27→17:45)
[2019-12-02] MEDS: LISINOPRIL 5 MG TABLET PO SCH (08:29)
[2019-12-02] MEDS: DOCUSATE SODIUM 100 MG CAPSULE PO SCH (08:29)
[2019-12-02] MEDS: lamoTRIgine 25 MG TABLET PO SCH (08:31)
[2019-12-02] MEDS: HEPARIN 5,000 UNIT/ML VIAL SQ SCH (08:32)
[2019-12-02] MEDS: LORazepam 2 MG/ML VIAL IV PRN (08:35)
[2019-12-02] MEDS ORDERED: VANCOMYCIN 2,000 MG in 0.9 % SODIUM CHLORIDE 500 ML IV SCH (09:00)
[2019-12-02] MEDS: cefTRIAXone 2 GM in DEXTROSE 5% IN WATER 50 ML IV SCH (09:02)
[2019-12-02] MEDS ORDERED: 0.9 % SODIUM CHLORIDE 10 ML SYRINGE IV PRN (09:36)
[2019-12-02] MEDS: VANCOMYCIN 1,500 MG in 0.9 % SODIUM CHLORIDE 500 ML IV SCH (09:56)
[2019-12-02] MEDS ORDERED: LORazepam 2 MG/ML VIAL IV ONE (11:09)
[2019-12-02] MEDS: INSULIN GLARGINE, HUMAN 1 UNIT/0.01 ML SQ SCH (11:24)
--- NOTE | 2019-12-02 12:48 | XRay Report ---
CLINICAL INFORMATION: PICC PLACEMENT COMPARISON: 03/09/2015 FINDINGS: Right PICC line tip is distally positioned overlying the tricuspid valve plane. Film taken in expiration accentuates cardiomediastinal silhouette and pulmonary vessels which are likely normal. Lungs are clear. No effusions IMPRESSION: Normal expiration chest. PICC line tip is distally positioned - the nurses were instructed to withdraw the line 5 cm Interpreted and Authenticated by: Joce King 12/02/19
--- NOTE | 2019-12-02 14:39 | Discharge Summary ---
Medical - DS: Prov Patient information: Note initiated : 12/02/19 at 2:37 pm Service Date, if different from initiated Date: [] Patient: Dolores Sow 49 y/o F admitted on 11/27/19 for diabetic foot ulcer, right foot. Chief Complaint: [] Date of admission: 11/27/19 15:58 Discharge date: 12/02/19 Consults: 11/27/19 14:59 Consult to Physician [CONS] Stat Comment: Consulting Provider: Nithin Rodriguez Reason For Exam: Physician to Consult 11/27/19 16:45 Consult to Physician [CONS] Routine Comment: Consulting Provider: Abdifatah Tierney Reason For Exam: Physician to Consult 11/27/19 20:08 Consult to Physician [CONS] Routine Comment: Consulting Provider: Asif Tellez Reason For Exam: Physician to Consult 11/28/19 08:41 Consult to Physician [CONS] Routine Comment: Sepsis DFU Right plantar Stage 4 Consulting Provider: Asif Tellez Reason For Exam: Evaluation and Treatment 12/01/19 09:56 Consult to Physician [CONS] Routine Comment: Consulting Provider: Shiv Boyd Reason For Exam: Physician to Consult Medical - DS: Meds - Discharge Medications Active and Home Medications: Home Medications multivitamin 1 tab PO QDAY #90 tab 04/20/15 [Rx Confirmed 11/27/19 Last Taken 11/26/19 09:00] Naproxen [EC-Naprosyn] 375 mg PO 1HRACBID #20 tablet. 07/27/15 [Rx Confirmed 11/27/19 Last Taken Unknown] gabapentin 400 mg capsule 400 mg PO TID #90 cap 12/18/15 [Rx Confirmed 11/27/19 Last Taken 11/26/19 05:00] gabapentin 600 mg tablet,extended release 24 hr 600 mg PO HS #30 tab 12/18/15 [Rx Confirmed 11/27/19 Last Taken 11/26/19 21:00] insulin glargine 100 unit/mL (3 mL) subcutaneous pen 135 unit SUB-Q QHS #15 ml 12/18/15 [Rx Confirmed 11/27/19 Last Taken 11/26/19 21:00] insulin glargine 100 unit/mL subcutaneous solution 175 unit SUB-Q .am #10 ml 12/18/15 [Rx Confirmed 11/27/19 Last Taken 11/27/19 09:00] lamotrigine 25 mg tablet 50 mg PO QDAY #60 tab 12/18/15 [Rx Confirmed 11/27/19 Last Taken Unknown] lisinopril 20 mg tablet 20 mg PO DAILY #30 tab 12/18/15 [Rx Confirmed 11/27/19 Last Taken 11/26/19 09:00] quetiapine 25 mg tablet 75 mg PO QHS #90 tab 12/18/15 [Rx Confirmed 11/27/19 Last Taken 11/26/19 21:00] simvastatin 20 mg tablet 20 mg PO QPM #30 tab 12/18/15 [Rx Confirmed 11/27/19 Last Taken 11/26/19 21:00] triamterene 37.5 mg-hydrochlorothiazide 25 mg tablet 1 tab-cap PO DAILY #30 tab 12/18/15 [Rx Confirmed 11/27/19 Last Taken 11/26/19 21:00] insulin aspart U-100 100 unit/mL subcutaneous solution See Dose Instructions SUB-Q TID #10 ml 02/21/16 [Rx Confirmed 11/27/19 Last Taken Unknown] Clindamycin HCl [Cleocin] 300 mg PO TID #30 cap 05/28/19 [Rx Confirmed 11/27/19 Last Taken Unknown] Medical - DS: Hosp Hospital Course: Discharge diagnosis * Diabetic Right Foot ulcer/infection with Osteo: -MRI showing cellulitis/abscess/osteo. Status post I&D by podiatry. MRSA on culture. Continue IV vancomycin * DM w/neuropathy, uncontrolled: Patient remains noncompliant with consistent carbohydrate diet. A1c 10.4. Continue Lantus 175units in morning and 100 at night. Continue gabapentin * Hyponatremia: resolved * CHRIS: Not on CPAP * HTN/HLD: On lisinopril * Anxiety/depression/bipolar: Psychiatry consult if worsening. Currently on quetiapine * Tobacco abuse: Nicotine patch/counseling * Obesity: Continue dietary intervention/directed therapies * GERD: PPI * Substance abuse: with amphetamines IV/Inhaled. Patient now being admitted to swing bed status. Will place PICC line Brief hospital course Ms. Sow is a 49 year old F Presents the ED with diabetic foot ulcer that is becoming increasingly red , warm, and tender. She is being followed by wound care outpatient. Patient states that when she went to the wound care on Thursday for routine check she had a red swollen tender right foot. Since that time the redness has increased to include her entire foot with swelling around her right foot. Vital signs are stable this time. She was found to have a leukocytosis of 17. Lactate okay. MRI of the foot done in ED and pending results Dr. tierney contacted from the ED. Patient denies fevers, appears anxious. 11/27 Patient slept well last night. Denies any fevers or chills or new complaints. Right foot kettle tender. Was quite defensive when I asked her about methamphetamine use, uses IV and inhaled. Explained to her the resources we have, including Dr. Haq. 11/28-patient doing well. Surgical I&D today. No overnight events or fever chills. On antibiotic coverage. No concerns per nursing staff. White count down from 17.6-9.6. Sodium improved from 1 30-1 34. 11/29-patient status post I&D by podiatry. Ongoing antibiotic. Staph aureus last enterococcus on wound cultures. Final sensitivities pending. No overnight fever chills. Wound care ongoing. History of methamphetamine use with positive drug screen. Patient would not be a candidate for indwelling IV line for long- term antibiotics due to high risk catheter misuse for IV drugs. Case management coordinate daily outpatient infusion. Final antibiotics will be based on cultures 11/30-patient doing well. MRSA on cultures. On antibiotics per ID. Patient likely continue IV antibiotics during current hospitalization and then transition to swing bed status for continued postoperative care/antibiotics. No overnight events. Emotionally labile. Remains anxious. White count 12.4. Patient continues to demand high-calorie diet despite efforts to maintain a consistent carb diet. Patient's blood sugars have been as high as 300 due to erratic food intake 12/01-patient admitted to swing bed status. PICC line in place. We will continue antibiotics as per ID recommendations-IV vancomycin twice daily/Rocephin daily for 6 weeks. Discharge diagnosis: . - Time Spent with Patient Total time spent providing and/or coordinating discharge services: Greater than 30 minutes Medical - DS: Exam - Constitutional Vitals: Vital Signs Temp Pulse Resp BP BP Pulse Ox 12/02/19 12:00 97.1 F 20 164/80 97 12/02/19 07:09 98.3 F 20 142/83 98 12/02/19 04:00 97.8 F 82 16 129/81 94 12/02/19 00:00 97.3 F 20 114/70 96 12/01/19 21:42 98.7 F 18 133/75 12/01/19 16:00 98.3 F 91 H 20 140/93 98 Intake and Output 12/02/19 12/02/19 12/02/19 05:59 13:59 21:59 Intake Total 1540 730 Output Total 1200 1000 Balance 340 -270 Intake: IV 500 550 Vancomycin 2,000 mg In Sodium 500 500 Chloride 0.9% 500 ml @ 250 mls/ hr IV Q12H [facility] Rx#:[id number] Rocephin 2 gm In Dextrose 5% in 50 Water 50 ml @ 100 mls/hr IV DAILY [facility] Rx#:[id number] Oral 800 180 GI Tube Flush 240 Output: Void Amount 1200 1000 Other: Meal Breakfast Percent of Meal Consumed 100% 100% Feeding Ability Independent Independent Urine Appearance Clear Clear Urine Color Pale Bright Yellow Urine Odor Normal Normal # Voids 1 Medical - DS: Data Labs on day of discharge: Labs from last 24 hours 12/02/19 12/02/19 12/02/19 08:15 05:05 05:05 WBC 8.0 RBC 4.05 Hgb 11.7 Hct 36.4 MCV 89.9 MCH 28.9 MCHC 32.1 RDW 13.6 Plt Count 268 MPV 10.3 Total Counted 100 Seg Neutrophils % 48 Band Neutrophils % 2 Lymphocytes % 34 Monocytes % (Manual) 8 Eosinophils % (Manual) 6 Metamyelocytes % 2 H Platelet Estimate Normal RBC Morphology Normal Sodium 136 Potassium 4.0 Chloride 100 Carbon Dioxide 26 Anion Gap 10.0 BUN 13 Creatinine 0.5 L GFR Calculation 115 Glucose 75 Uric Acid 4.3 Calcium 8.6 Phosphorus 4.2 Magnesium 1.8 Total Bilirubin < 0.2 Direct Bilirubin < 0.2 GGT 39 H AST 20 ALT 14 Alkaline Phosphatase 75 Lactate Dehydrogenase 152 Total Protein 6.2 Albumin 3.0 L Globulin 3.2 Albumin/Globulin Ratio 0.9 L Triglycerides 186 H Vancomycin Trough 10.2 Preliminary micro results at discharge 11/29/19 11:28 Anaerobic Culture - Preliminary Foot - Right Medical - DS: A/P - Patient/Caregiver Discharge Instructions Activity: increase activity as tolerated Diet: Renal/Consistent Carbs - Follow up Plan Disposition: Xfer As Swing Bed (TS) Prognosis: Fair Rehab Potential: Fair I certify that the patient requires SNF services: Yes Overall status at discharge: patient is progressing back to baseline Medical - DS: Qual - VTE Deep Vein Thrombosis/Pulmonary Embolism Present on Admission: No
--- NOTE | 2019-12-02 15:18 | Infectious Disease Prog Note ---
Subjective Patient information: Note initiated : 12/02/19 at 3:12 pm Service Date, if different from initiated Date: [] Patient: Dolores Sow 49 y/o F admitted on 11/27/19 for diabetic foot ulcer, right foot. Chief Complaint: [] Interval history: Pt denied fever, chills, n/v, diarrhea. Requesting more pain meds. Endorses foot pain but able to do foot movements without difficulty. Objective Objective Narrative: ao x 3, in nad no thrush right foot: wrapped in dressing. No distal foot discoloration, able to wiggle toes and do flexion/extension around the ankle joint without any difficulty - Vital Signs Vital signs: Vital Signs Temp Pulse Resp BP BP Pulse Ox 12/02/19 12:00 36.2 C 20 164/80 97 12/02/19 07:09 36.8 C 20 142/83 98 12/02/19 04:00 36.6 C 82 16 129/81 94 12/02/19 00:00 36.3 C 20 114/70 96 12/01/19 21:42 37.1 C 18 133/75 12/01/19 16:00 36.8 C 91 H 20 140/93 98 Intake and Output 12/02/19 12/02/19 12/02/19 05:59 13:59 21:59 Intake Total 1540 730 Output Total 1200 1000 Balance 340 -270 Intake: IV 500 550 Vancomycin 2,000 mg In Sodium 500 500 Chloride 0.9% 500 ml @ 250 mls/ hr IV Q12H [facility] Rx#:[id number] Rocephin 2 gm In Dextrose 5% in 50 Water 50 ml @ 100 mls/hr IV DAILY [facility] Rx#:[id number] Oral 800 180 GI Tube Flush 240 Output: Void Amount 1200 1000 Other: Meal Breakfast Percent of Meal Consumed 100% 100% Feeding Ability Independent Independent Urine Appearance Clear Clear Urine Color Pale Bright Yellow Urine Odor Normal Normal # Voids 1 Intake & Output: Intake & Output 12/02/19 12/02/19 12/02/19 05:59 13:59 21:59 Intake Total 1540 730 Output Total 1200 1000 Balance 340 -270 Intake: IV 500 550 Vancomycin 2,000 mg In Sodium 500 500 Chloride 0.9% 500 ml @ 250 mls/ hr IV Q12H [facility] Rx#:[id number] Rocephin 2 gm In Dextrose 5% in 50 Water 50 ml @ 100 mls/hr IV DAILY [facility] Rx#:[id number] Oral 800 180 GI Tube Flush 240 Output: Void Amount 1200 1000 Other: Meal Breakfast Percent of Meal Consumed 100% 100% Feeding Ability Independent Independent Urine Appearance Clear Clear Urine Color Pale Bright Yellow Urine Odor Normal Normal # Voids 1 - Lab 12/02/19 05:05 12/02/19 05:05 Most recent lab results Calcium 8.6 mg/dl (8.6-10.4) 12/02/19 05:05 Phosphorus 4.2 mg/dL (2.7-4.5) 12/02/19 05:05 Magnesium 1.8 mg/dL (1.6-2.5) 12/02/19 05:05 Microbiology 11/29/19 11:28 Foot - Right Gram Stain - Final 11/29/19 11:28 Foot - Right Gram Stain - Final 11/29/19 11:28 Foot - Right Anaerobic Culture - Preliminary 11/29/19 11:28 Foot - Right Gram Stain - Final 11/29/19 11:28 Foot - Right Wound Culture - Final Strep agalactiae - (group b) Escherichia coli Methicillin resistant s.aureus 11/27/19 16:25 Foot - Right Gram Stain - Final 11/27/19 16:25 Foot - Right Wound Culture - Final Methicillin resistant s.aureus Strep agalactiae - (group b) Escherichia coli 11/27/19 18:00 Nose MRSA (PCR) - Final Medications Active Medications: Acetaminophen (Tylenol) 650 mg PO Q6HP PRN PRN Reason: PAIN/FEVER > 101 Hydrocodone Bitart/Acetaminophen ([place] 5/325mg) 1 tab PO Q4HP PRN PRN Reason: PAIN LEVEL 3-6 Last Admin: 11/30/19 13:47 Dose: 1 tab Documented by: Admin: 11/30/19 09:44 Dose: 1 tab Documented by: Admin: 11/29/19 20:32 Dose: 1 tab Documented by: Admin: 11/29/19 14:35 Dose: 1 tab Documented by: Admin: 11/28/19 21:20 Dose: 1 tab Documented by: LEIDY Albuterol/Ipratropium (Duoneb) 3 ml NEB Q4HP PRN PRN Reason: Shortness Of Breath Dextrose (Dextrose 50%) 0 ml IV UD PRN PRN Reason: Hypoglycemia Diagnostic Test (Pha) (Accu-Chek) 1 each FS ACHS [facility] Last Admin: 12/02/19 11:30 Dose: 1 each Documented by: Admin: 12/02/19 07:52 Dose: 1 each Documented by: Admin: 12/01/19 20:46 Dose: 1 each Documented by: Admin: 12/01/19 16:53 Dose: 1 each Documented by: Admin: 12/01/19 11:32 Dose: 1 each Documented by: Admin: 12/01/19 06:41 Dose: 1 each Documented by: Admin: 11/30/19 20:36 Dose: 1 each Documented by: Admin: 11/30/19 16:39 Dose: 1 each Documented by: Admin: 11/30/19 11:29 Dose: 1 each Documented by: Admin: 11/30/19 07:21 Dose: 1 each Documented by: Admin: 11/29/19 20:39 Dose: 1 each Documented by: Admin: 11/29/19 16:55 Dose: 1 each Documented by: Admin: 11/29/19 11:33 Dose: 1 each Documented by: Admin: 11/29/19 07:55 Dose: Not Given Documented by: CHAY Non-Admin Reason: Duplicate Admin: 11/28/19 21:29 Dose: 1 each Documented by: Admin: 11/28/19 18:28 Dose: 1 each Documented by: Admin: 11/28/19 14:49 Dose: 1 each Documented by: Admin: 11/28/19 14:44 Dose: 1 each Documented by: Admin: 11/28/19 11:31 Dose: 1 each Documented by: Admin: 11/28/19 10:37 Dose: 1 each Documented by: Admin: 11/28/19 10:37 Dose: 1 each Documented by: Admin: 11/27/19 20:25 Dose: 1 each Documented by: Admin: 11/27/19 17:45 Dose: 1 each Documented by: [email or web address] Diphenhydramine HCl (Benadryl) 25 mg PO HSP PRN PRN Reason: Insomnia Docusate Sodium (Colace) 100 mg PO BID [facility] Last Admin: 12/02/19 08:29 Dose: 100 mg Documented by: Admin: 12/01/19 21:12 Dose: 100 mg Documented by: Admin: 12/01/19 08:54 Dose: 100 mg Documented by: Admin: 11/30/19 20:30 Dose: 100 mg Documented by: Admin: 11/30/19 09:45 Dose: 100 mg Documented by: Admin: 11/29/19 20:33 Dose: 100 mg Documented by: Admin: 11/29/19 07:37 Dose: Not Given Documented by: CHAY Non-Admin Reason: NPO Admin: 11/28/19 21:19 Dose: 100 mg Documented by: Admin: 11/28/19 10:33 Dose: 100 mg Documented by: Admin: 11/27/19 20:25 Dose: Not Given Documented by: RAGHAV Non-Admin Reason: Patient Request Famotidine (Pepcid) 20 mg PO [facility] Last Admin: 12/01/19 21:12 Dose: 20 mg Documented by: Admin: 11/30/19 20:30 Dose: 20 mg Documented by: Admin: 11/29/19 20:33 Dose: 20 mg Documented by: Admin: 11/28/19 21:19 Dose: 20 mg Documented by: Admin: 11/27/19 20:23 Dose: 20 mg Documented by: RAGHAV Gabapentin (Neurontin) 600 mg PO [facility] Last Admin: 12/01/19 21:12 Dose: 600 mg Documented by: Admin: 11/30/19 20:30 Dose: 600 mg Documented by: Admin: 11/29/19 20:33 Dose: 600 mg Documented by: Admin: 11/28/19 21:19 Dose: 600 mg Documented by: Admin: 11/27/19 20:23 Dose: 600 mg Documented by: RSAUVE Gabapentin (Neurontin) 400 mg PO TID@0900,1300,1700 [facility] Admin: 12/02/19 12:58 Dose: 400 mg Documented by: Admin: 12/02/19 08:27 Dose: 400 mg Documented by: Admin: 12/01/19 16:57 Dose: 400 mg Documented by: Admin: 12/01/19 14:05 Dose: 400 mg Documented by: Admin: 12/01/19 08:54 Dose: 400 mg Documented by: Admin: 11/30/19 17:23 Dose: 400 mg Documented by: Admin: 11/30/19 13:47 Dose: 400 mg Documented by: Admin: 11/30/19 09:44 Dose: 400 mg Documented by: Admin: 11/29/19 16:56 Dose: 400 mg Documented by: Admin: 11/29/19 13:41 Dose: 400 mg Documented by: Admin: 11/29/19 07:36 Dose: 400 mg Documented by: Admin: 11/28/19 16:42 Dose: 400 mg Documented by: Admin: 11/28/19 14:44 Dose: 400 mg Documented by: Admin: 11/28/19 10:35 Dose: 400 mg Documented by: JOHNNIE Glucose (Insta-Glucose) 15 gm PO PRN PRN PRN Reason: Hypoglycemia Heparin Sodium (Porcine) (Heparin) 5,000 unit SQ Q12 [facility] Admin: 12/02/19 08:32 Dose: 5,000 unit Documented by: Admin: 12/01/19 21:12 Dose: 5,000 unit Documented by: Admin: 12/01/19 08:53 Dose: 5,000 unit Documented by: Admin: 11/30/19 20:32 Dose: 5,000 unit Documented by: Admin: 11/30/19 09:43 Dose: 5,000 unit Documented by: Admin: 11/29/19 20:37 Dose: 5,000 unit Documented by: Admin: 11/29/19 07:37 Dose: Not Given Documented by: LSCULLY Non-Admin Reason: surgery Admin: 11/28/19 21:27 Dose: Not Given Documented by: LEIDY Non-Admin Reason: OR in AM Admin: 11/28/19 10:34 Dose: Not Given Documented by: JOHNNIE Non-Admin Reason: Patient Refused Admin: 11/27/19 20:24 Dose: 5,000 unit Documented by: RAGHAV Heparin Sodium (Porcine) (Heparin Flush) 2 ml IV Q12 [facility] Potassium Chloride 40 meq/ (Dextrose) 520 mls @ 130 mls/hr IV UD PRN PRN Reason: Potassium < 3 Magnesium Sulfate (Magnesium Sulfate) 2 gm in 50 mls @ 50 mls/hr IV UD PRN PRN Reason: Magnesium </= 1.6 Ceftriaxone Sodium 2 gm/ (Dextrose) 50 mls @ 100 mls/hr IV DAILY [facility]; Protocol Last Infusion: 12/02/19 09:45 Dose: 0 mls/hr Documented by: MARIA TERESA Admin: 12/02/19 09:02 Dose: 100 mls/hr Documented by: Infusion: 12/01/19 17:32 Dose: 100 mls/hr Documented by: Admin: 12/01/19 09:14 Dose: 100 mls/hr Documented by: Infusion: 11/30/19 10:30 Dose: 100 mls/hr Documented by: Admin: 11/30/19 10:00 Dose: 100 mls/hr Documented by: Infusion: 11/29/19 09:52 Dose: 100 mls/hr Documented by: Admin: 11/29/19 09:22 Dose: 100 mls/hr Documented by: Infusion: 11/28/19 11:24 Dose: 0 mls/hr Documented by: Admin: 11/28/19 10:33 Dose: 100 mls/hr Documented by: Infusion: 11/27/19 19:27 Dose: 100 mls/hr Documented by: Admin: 11/27/19 18:57 Dose: 100 mls/hr Documented by: RAGHAV Vancomycin HCl 2,000 mg/ (Sodium Chloride) 500 mls @ 250 mls/hr IV Q12H [facility] Last Infusion: 12/02/19 11:55 Dose: 0 mls/hr Documented by: Admin: 12/02/19 09:55 Dose: 250 mls/hr Documented by: MARCUS Insulin Glargine (Lantus) 175 unit SQ DAILY [facility] Last Admin: 12/02/19 11:24 Dose: 175 units Documented by: Admin: 12/01/19 09:15 Dose: Not Given Documented by: BAY Non-Admin Reason: Clinical Judgement Comments: blood sugar 91 Admin: 11/30/19 09:46 Dose: 175 units Documented by: Admin: 11/29/19 07:38 Dose: Not Given Documented by: CHAY Non-Admin Reason: NPO Admin: 11/28/19 10:34 Dose: 175 units Documented by: JOHNNIE Insulin Glargine (Lantus) 135 unit SQ HS [facility] Last Admin: 12/01/19 21:11 Dose: 135 units Documented by: Admin: 11/30/19 20:33 Dose: 135 units Documented by: Admin: 11/29/19 20:34 Dose: 135 units Documented by: Admin: 11/28/19 21:21 Dose: Not Given Documented by: LEIDY Non-Neelam Reason: Clinical Judgement Admin: 11/27/19 20:23 Dose: 135 units Documented by: RAGHAV Insulin Human Lispro (Humalog) 0 unit SQ ACHS [facility]; Protocol Last Admin: 12/02/19 11:31 Dose: Not Given Documented by: CASEY Non-Admin Reason: No Coverage Needed Admin: 12/02/19 07:52 Dose: Not Given Documented by: CASEY Non-Admin Reason: No Coverage Needed Admin: 12/01/19 21:11 Dose: 12 unit Documented by: Admin: 12/01/19 16:53 Dose: Not Given Documented by: BAY Non-Admin Reason: No Coverage Needed Admin: 12/01/19 11:49 Dose: 3 unit Documented by: Admin: 12/01/19 06:45 Dose: Not Given Documented by: MARCUS Non-Admin Reason: No Coverage Needed Admin: 11/30/19 20:59 Dose: 12 unit Documented by: Admin: 11/30/19 17:23 Dose: 9 unit Documented by: Admin: 11/30/19 11:39 Dose: 12 unit Documented by: Admin: 11/30/19 07:22 Dose: 15 unit Documented by: Admin: 11/29/19 20:47 Dose: 15 unit Documented by: [email or web address] Admin: 11/29/19 16:56 Dose: 18 unit Documented by: Admin: 11/29/19 11:33 Dose: Not Given Documented by: CHAY Non-Admin Reason: Labs Outside of Range Admin: 11/29/19 07:38 Dose: Not Given Documented by: CHAY Non-Admin Reason: surgery Admin: 11/28/19 21:24 Dose: 3 unit Documented by: Admin: 11/28/19 18:28 Dose: 12 unit Documented by: Admin: 11/28/19 11:54 Dose: 9 unit Documented by: Admin: 11/28/19 10:35 Dose: Not Given Documented by: JOHNNIE Non-Admin Reason: No Coverage Needed Admin: 11/27/19 20:24 Dose: 3 unit Documented by: Admin: 11/27/19 16:56 Dose: 18 unit Documented by: [email or web address] Lamotrigine (Lamictal) 50 mg PO QDAY [facility] Admin: 12/02/19 08:31 Dose: 50 mg Documented by: Admin: 12/01/19 08:54 Dose: 50 mg Documented by: Admin: 11/30/19 09:45 Dose: 50 mg Documented by: Admin: 11/29/19 07:56 Dose: 50 mg Documented by: CHAY Comments: does not scan Admin: 11/28/19 10:39 Dose: 50 mg Documented by: JOHNNIE Lisinopril (Zestril) 5 mg PO DAILY [facility] Admin: 12/02/19 08:29 Dose: 5 mg Documented by: Admin: 12/01/19 08:54 Dose: 5 mg Documented by: Admin: 11/30/19 09:44 Dose: 5 mg Documented by: Admin: 11/29/19 07:36 Dose: 5 mg Documented by: Admin: 11/28/19 10:35 Dose: 5 mg Documented by: JOHNNIE Lorazepam (Ativan) 0.5 mg IV Q4-6HP PRN PRN Reason: ANXIETY/SEDATION Last Admin: 12/02/19 08:35 Dose: 0.5 mg Documented by: Admin: 12/01/19 21:36 Dose: 0.5 mg Documented by: Admin: 12/01/19 17:27 Dose: 0.5 mg Documented by: Admin: 12/01/19 12:08 Dose: 0.5 mg Documented by: Admin: 12/01/19 07:49 Dose: 0.5 mg Documented by: Admin: 11/29/19 12:45 Dose: 0.5 mg Documented by: SASKIA Melatonin (Melatonin 3mg Tablet) 3 mg PO HSP [facility] Morphine Sulfate (Morphine) 0 mg IV Q3HP PRN PRN Reason: Pain Last Admin: 12/02/19 09:11 Dose: 3 mg Documented by: Admin: 12/01/19 21:13 Dose: 3 mg Documented by: Admin: 12/01/19 14:13 Dose: 2 mg Documented by: Admin: 12/01/19 08:51 Dose: 2 mg Documented by: Admin: 11/30/19 21:14 Dose: 3 mg Documented by: Admin: 11/30/19 07:22 Dose: 2 mg Documented by: Admin: 11/29/19 16:56 Dose: 2 mg Documented by: Admin: 11/29/19 13:41 Dose: 3 mg Documented by: Admin: 11/28/19 11:32 Dose: 4 mg Documented by: Admin: 11/27/19 19:37 Dose: 3 mg Documented by: RAGHAV Ondansetron HCl (Zofran) 4 mg IV Q4HP PRN PRN Reason: Nausea And Vomiting Polyethylene Glycol (Miralax) 17 gm PO DAILYP PRN PRN Reason: Constipation Potassium Chloride (Kdur) 40 meq PO UD PRN PRN Reason: Potssium is 3-3.5 Potassium Chloride (Kdur) 40 meq PO UD PRN PRN Reason: Potassium < 3 Quetiapine Fumarate (Seroquel) 75 mg PO QHS [facility] Last Admin: 12/01/19 21:12 Dose: 75 mg Documented by: Admin: 11/30/19 20:30 Dose: 75 mg Documented by: Admin: 11/29/19 20:33 Dose: 75 mg Documented by: Admin: 11/28/19 21:19 Dose: 75 mg Documented by: Admin: 11/27/19 20:23 Dose: 75 mg Documented by: RAGHAV Scopolamine (Transderm-Scop) 1 patch TOPICAL PREOP PRN PRN Reason: Nausea And Vomiting Senna (Senokot) 2 tab PO DAILYP PRN PRN Reason: Constipation Simvastatin (Zocor) 20 mg PO QPM [facility] Admin: 12/01/19 21:12 Dose: 20 mg Documented by: Admin: 11/30/19 20:30 Dose: 20 mg Documented by: Admin: 11/29/19 20:33 Dose: 20 mg Documented by: Admin: 11/28/19 21:19 Dose: 20 mg Documented by: Admin: 11/27/19 20:23 Dose: 20 mg Documented by: RAGHAV Sodium Chloride (Saline Flush) 10 ml IV Q8 [facility] Admin: 12/02/19 12:59 Dose: 10 ml Documented by: Admin: 12/02/19 06:03 Dose: Not Given Documented by: PORTER Non-Admin Reason: Patient Asleep Admin: 12/01/19 21:13 Dose: 10 ml Documented by: Admin: 12/01/19 14:13 Dose: 10 ml Documented by: Admin: 12/01/19 06:25 Dose: 10 ml Documented by: Admin: 11/30/19 22:05 Dose: 10 ml Documented by: Admin: 11/30/19 16:37 Dose: 10 ml Documented by: Admin: 11/30/19 07:23 Dose: 10 ml Documented by: Admin: 11/29/19 20:38 Dose: 10 ml Documented by: Admin: 11/29/19 14:55 Dose: Not Given Documented by: CHAY Non-Admin Reason: Continuous IV Admin: 11/29/19 06:16 Dose: 10 ml Documented by: Admin: 11/28/19 21:21 Dose: 10 ml Documented by: Admin: 11/28/19 16:41 Dose: Not Given Documented by: JOHNNIE Non-Admin Reason: No IV Admin: 11/28/19 10:39 Dose: 10 ml Documented by: Admin: 11/27/19 22:05 Dose: 10 ml Documented by: RAGHAV Sodium Chloride (Saline Flush) 10 ml IV UD PRN PRN Reason: FLUSH Sodium Chloride (Saline Flush) 10 ml IV Q12 [facility] Vancomycin HCl (Vancomycin Per Pharmacy) 1 order IV UD [facility]; Protocol Assessment and Plan - Narrative A/P Narrative: A: 1. 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 Operative Cx from 11/28 growing Gp B Strept, E coli (sens to ceftriaxone), MRSA 2. Obesity 3. Type 2 DM: A1C of 10 at admission 4. Active injection drug use: injected meth last Thursday (11/23/19) Recommendations: - Continue IV vanc [1 gm q8 hrs] per pharmacy assisted dosing. Check vanc trough before the 4th dose. Target level 15-20 - Continue IV Ceftriaxone 2 gm q24 hrs - will plan for 6 weeks of IV antibiotics counting from day of her surgery (11/29/19) - If pt would be staying on swing bed, consider PICC line placement. If pt was to leave AMA, PICC line should be pulled out - ID clinic f/u in 4 weeks as OP (if pt discharged). If pt is on swing bed at that time, will see pt in the hospital. * F/u labs: CBC, BMP weekly ESR, CRP every other week Shiv Boyd MD Infectious Diseases
[2019-12-02] MEDS ORDERED: 0.9 % SODIUM CHLORIDE 10 ML SYRINGE IV SCH (21:00)
--- NOTE | 2019-12-06 10:53 | General Surgery Consult Note ---
History of Present Illness Patient information: Note initiated : 12/06/19 at 10:51 am Service Date, if different from initiated Date: [] Patient: Dolores Sow 49 y/o F admitted on 11/27/19 for diabetic foot ulcer, right foot. Chief Complaint: [] Consult date: 11/27/19 Requesting physician: Sol Aragon History of present illness: I did NOT See this patient in consultation. I referred / redirected this patient to Dr. Asif Tellez, [facility] / Foot and Ankle Surgeon for evaluation and treatment. Medications and Allergies Home Medications Medication Instructions Recorded Confirmed Type multivitamin 1 tab PO QDAY #90 tab 04/20/15 12/02/19 Rx Naproxen [EC-Naprosyn] 375 mg PO 1HRACBID #20 tablet. 07/27/15 12/02/19 Rx gabapentin 400 mg capsule 400 mg PO TID #90 cap 12/18/15 12/02/19 Rx gabapentin 600 mg tablet,extended 600 mg PO HS #30 tab 12/18/15 12/02/19 Rx release 24 hr insulin glargine 100 unit/mL (3 135 unit SUB-Q QHS #15 ml 12/18/15 12/02/19 Rx mL) subcutaneous pen insulin glargine 100 unit/mL 175 unit SUB-Q .am #10 ml 12/18/15 12/02/19 Rx subcutaneous solution lamotrigine 25 mg tablet 50 mg PO QDAY #60 tab 12/18/15 12/02/19 Rx lisinopril 20 mg tablet 20 mg PO DAILY #30 tab 12/18/15 12/02/19 Rx quetiapine 25 mg tablet 75 mg PO QHS #90 tab 12/18/15 12/02/19 Rx simvastatin 20 mg tablet 20 mg PO QPM #30 tab 12/18/15 12/02/19 Rx triamterene 37.5 1 tab-cap PO DAILY #30 tab 12/18/15 12/02/19 Rx mg-hydrochlorothiazide 25 mg tablet insulin aspart U-100 100 unit/mL See Dose Instructions SUB-Q TID 02/21/16 12/02/19 Rx subcutaneous solution #10 ml Clindamycin HCl [Cleocin] 300 mg PO TID #30 cap 10/05/19 04/10/20 Rx Allergies Allergy/AdvReac Type Severity Reaction Status Date / Time cephalexin Allergy Mild Rash Verified 11/29/19 06:37 Penicillins Allergy Mild Rash Verified 11/29/19 06:37 Exam Temp Pulse Resp BP Pulse Ox 98.1 F 82 20 131/73 94 12/02/19 15:38 12/02/19 04:00 12/02/19 15:38 12/02/19 15:38 12/02/19 15:38 Results - Labs 12/02/19 05:05 12/02/19 05:05 All other labs normal.
== END 2019-12-02 15:40 | disposition swing bed (61) | DRG 623 ==
LOC: ED 10:32 → MEDSUR 15:58
PROVIDERS: ADMIT Internal Medicine; ATTEND Internal Medicine